=== PATIENT | female | born 1955 | race American Indian/Alaskan Native ===

== ENCOUNTER 2016-12-03 11:30 | Outpatient (CLI) | payer MEDICARE, OTHER ==
--- NOTE | 2016-12-03 12:34 | Mammography Report ---
BILATERAL MAMMOGRAM: FINDINGS: There are scattered fibroglandular densities (approximately 25%-50% glandular). No mass, distortion, suspicious calcification, or skin change is seen. No significant changes when compared to prior exams dating back to 2013. CAD was utilized. IMPRESSION: Negative mammogram. There is no mammographic evidence of malignancy. RECOMMENDATION: Follow-up per ACS guidelines. BI-RADS CATEGORY: 1 = Negative ACR BI-RADS MAMMOGRAPHIC CODES: 0 = Needs additional imaging evaluation; 1 = Negative; 2 = Benign; 3 = Probably benign; 4 = Suspicious; 5 = Malignant; 6 = Known biopsy-proven malignancy COMMENT: 1. Dense breast tissue, i.e., adenosis, fibrocystic changes, etc., may obscure an underlying neoplasm. 2. Approximately 10% of cancers are not detected with mammography. 3. A negative mammography report should not delay biopsy if a clinically suspicious mass is present. COMMENT: Patient follow-up letters are generated in [employer].
== END 2016-12-03 11:31 | disposition home or self-care (01) ==
LOC: MAMMO 11:30
PROVIDERS: ATTEND Obstetrics & Gynecology Gynecology
DX: Z12.31 Encounter for screening mammogram for malignant neoplasm of breast (principal)
CPT/HCPCS: 77067; G0202

== ENCOUNTER 2018-03-27 10:31 | Outpatient (CLI) | payer MEDICARE, OTHER ==
--- NOTE | 2018-03-28 11:30 | Mammography Report ---
BILATERAL DIGITAL SCREENING MAMMOGRAM with CAD : 03/27/18 10:31:00 CLINICAL: Routine screening. COMPARISON:12/03/16 FINDINGS: The breasts are heterogeneously dense, which may obscure small masses. No mass, architectural distortion or suspicious calcifications. IMPRESSION: No mammographic evidence of malignancy. BI-RADS CATEGORY: 2 -- Benign RECOMMENDATION: Routine mammographic screening in one year. COMMENT: Patient follow-up letters are generated by our [employer] application.
== END 2018-03-27 10:32 | disposition home or self-care (01) ==
LOC: MAMMO 10:31
PROVIDERS: ATTEND Family Medicine
DX: Z12.31 Encounter for screening mammogram for malignant neoplasm of breast (principal)
CPT/HCPCS: 77067

== ENCOUNTER 2018-11-15 19:21 | Inpatient (IN) | payer MEDICARE, OTHER ==
[2018-11-15 20:10] LABS: Basophils # (Auto) 0.1 K/mm3 (0.0-0.1); Basophils % (Auto) 0.9 % (0.0-1.8); Eosinophils % (Auto) 0.4 % (0.0-4.3); Hematocrit 42.5 % (30.3-42.9); Hemoglobin 14.3 gm/dl (10.1-14.3); Lymphocytes # (Auto) 1.3 K/mm3 (1.2-5.4); Lymphocytes % (Auto) 11.9 % (13.4-35.0); Mean Corpuscular HGB Conc 34 % (30-34); Mean Corpuscular Volume 88 fl (79-97); Monocytes # (Auto) 0.7 K/mm3 (0.0-0.8); Monocytes % (Auto) 6.6 % (0.0-7.3); Platelet Count 336 K/mm3 (140-440); Red Blood Count 4.84 M/mm3 (3.65-5.03); Red Cell Distribution Width 14.4 % (13.2-15.2)
--- NOTE | 2018-11-15 20:15 | Emergency Department Report ---
ED Shortness of Breath HPI - General Chief Complaint: Dyspnea/Respdistress Stated Complaint: DIFFICULTY IN BREATHING Time Seen by Provider: 11/15/18 19:30 Source: patient, EMS Mode of arrival: Stretcher Limitations: No Limitations - History of Present Illness Initial Comments: 63-year-old female presents to ED with cough and shortness of breath. Patient states she was diagnosed with pneumonia 2 weeks ago and more recently finished a course of doxycycline and 4 days ago. Patient reports 2 days ago she began having chest congestion and shortness of breath again. Patient has history of stage IV lung cancer. Patient states she is not currently on chemotherapy or radiation. States she is scheduled to begin a different treatment with medication that will be given through her port. Patient also reports history of PE, however states she is only on Plavix, denies Coumadin, Eliquis, Xarelto. The patient is not on home O2. Denies fever. Patient transported to ED via EMS, states patient's O2 sats were 88% on room air. MD Complaint: shortness of breath, cough -: days(s) (2) Severity: moderate Consistency: constant Improves With: nothing Worsens With: nothing Known History Of: other (pneumonia, stage IV lung cancer,? PE) - Related Data Home Medications Medication Instructions Recorded Confirmed Last Taken ALPRAZolam [Xanax TAB] 0.5 mg PO DAILY 11/15/18 11/16/18 11/15/18 Aspirin [Aspir-Low] 81 mg PO DAILY 11/15/18 11/16/18 11/15/18 Clopidogrel Bisulfate [Clopidogrel] 75 mg PO DAILY 11/15/18 11/16/18 11/15/18 Empagliflozin [Jardiance] 25 mg PO DAILY 11/15/18 11/15/18 11/14/18 Escitalopram [Lexapro] 10 mg PO DAILY 11/15/18 11/16/18 11/15/18 Losartan/Hydrochlorothiazide DAILY 11/15/18 11/15/18 [Losartan-Hctz 50-12.5 mg Tab] Sitagliptin Phosphate [Januvia] DAILY 11/15/18 11/15/18 Allergies Allergy/AdvReac Type Severity Reaction Status Date / Time hydrocodone AdvReac Anaphylaxis Verified 11/16/18 00:09 metformin AdvReac Anaphylaxis Verified 11/16/18 00:09 oxycodone [From OxyContin] AdvReac Angioedema Verified 11/16/18 00:09 ED Review of Systems ROS: Stated complaint: DIFFICULTY IN BREATHING Other details as noted in HPI Comment: All other systems reviewed and negative Constitutional: denies: chills, fever Respiratory: cough, shortness of breath Cardiovascular: chest pain ED Past Medical Hx - Past Medical History Previous Medical History?: Yes Hx Hypertension: Yes Hx CVA: Yes Hx Diabetes: Yes (DM2) Hx of Cancer: Yes (Stage 4 Lung CA) - Social History Smoking Status: Former Smoker Substance Use Type: None - Medications Home Medications: Home Medications Medication Instructions Recorded Confirmed Last Taken Type ALPRAZolam [Xanax TAB] 0.5 mg PO DAILY 11/15/18 11/16/18 11/15/18 History Aspirin [Aspir-Low] 81 mg PO DAILY 11/15/18 11/16/18 11/15/18 History Clopidogrel Bisulfate [Clopidogrel] 75 mg PO DAILY 11/15/18 11/16/18 11/15/18 History Empagliflozin [Jardiance] 25 mg PO DAILY 11/15/18 11/15/18 11/14/18 History Escitalopram [Lexapro] 10 mg PO DAILY 11/15/18 11/16/18 11/15/18 History Losartan/Hydrochlorothiazide DAILY 11/15/18 11/15/18 History [Losartan-Hctz 50-12.5 mg Tab] Sitagliptin Phosphate [Januvia] DAILY 11/15/18 11/15/18 History ED Physical Exam - General Limitations: No Limitations General appearance: alert, in no apparent distress - Head Head exam: Present: atraumatic, normocephalic - Eye Eye exam: Present: normal appearance - ENT ENT exam: Present: mucous membranes moist - Neck Neck exam: Present: normal inspection - Respiratory Respiratory exam: Present: normal lung sounds bilaterally. Absent: respiratory distress - Cardiovascular Cardiovascular Exam: Present: normal rhythm, tachycardia - GI/Abdominal GI/Abdominal exam: Present: soft. Absent: distended, tenderness - Extremities Exam Extremities exam: Present: normal inspection. Absent: pedal edema - Neurological Exam Neurological exam: Present: alert, oriented X3 - Psychiatric Psychiatric exam: Present: normal affect, normal mood - Skin Skin exam: Present: warm, dry, intact, normal color ED Course Vital Signs 04/05/2611/15/18 11/15/18 19:26 19:37 19:45 Temperature 97.7 F Pulse Rate 117 H 117 H 116 H Respiratory 18 27 H 24 Rate Blood Pressure 108/75 Blood Pressure 127/88 [Right] O2 Sat by Pulse 94 94 Oximetry 11/15/18 11/15/18 11/15/18 20:01 20:15 20:31 Temperature Pulse Rate 116 H 115 H 114 H Respiratory 27 H 27 H 20 Rate Blood Pressure 108/75 107/71 107/71 Blood Pressure [Right] O2 Sat by Pulse 91 91 92 Oximetry 11/15/18 11/15/18 11/15/18 20:45 21:01 21:15 Temperature Pulse Rate 114 H 115 H 115 H Respiratory 25 H 21 24 Rate Blood Pressure 107/71 107/71 128/80 Blood Pressure [Right] O2 Sat by Pulse 91 91 98 Oximetry 11/15/18 11/15/18 11/15/18 21:30 21:45 22:00 Temperature Pulse Rate 116 H 113 H 114 H Respiratory 12 22 11 L Rate Blood Pressure 125/83 138/84 143/86 Blood Pressure [Right] O2 Sat by Pulse 93 91 Oximetry 11/15/18 11/15/18 11/15/18 22:15 22:48 23:00 Temperature Pulse Rate 114 H 119 H 110 H Respiratory 21 26 H 27 H Rate Blood Pressure 130/84 142/86 131/87 Blood Pressure [Right] O2 Sat by Pulse 92 93 94 Oximetry 11/15/18 23:15 Temperature Pulse Rate 113 H Respiratory 22 Rate Blood Pressure 127/88 Blood Pressure [Right] O2 Sat by Pulse 93 Oximetry ED Medical Decision Making - Lab Data Result diagrams: 11/15/18 19:50 11/15/18 19:50 - EKG Data -: EKG Interpreted by Sc EKG shows normal: sinus rhythm, axis, intervals, QRS complexes, ST-T waves Rate: tachycardia (rate 117) - EKG Data Interpretation: nonspecific ST-T wave velasquez, other (low voltage) - Radiology Data Radiology results: report reviewed, image reviewed - Medical Decision Making 63-year-old female with history of stage IV lung cancer presents to ED with shortness of breath, hypoxia with room air sats 88%. Patient recently checked for pneumonia with 10 day course of doxycycline. Chest x-ray and CTA chest show possible pneumonia. No evidence of PE. Patient also has moderate to large pericardial effusion, which patient and has are already aware of, both state this is not new. Vital signs have been stable, patient is slightly hard tachycardic into the 110s, however blood pressure has been normal. Initial lactic acid consulted at 2.5. IV fluids administered, blood cultures drawn, Levaquin given. Repeat lactic acid is now within normal limits. Remainder of labs unremarkable, except for mild hypokalemia at 3.3, which has been replaced. Spoke with hospitalist, Dr Hui, for admission. Bridge orders placed. - Differential Diagnosis pneumonia, PE, progression of lung disease Critical care attestation.: If time is entered above; I have spent that time in minutes in the direct care of this critically ill patient, excluding procedure time. ED Disposition Clinical Impression: Pneumonia, Pericardial effusion without cardiac tamponade, Hypoxia, Hypokalemia Disposition: OP ADMIT IP TO THIS HOSP Is pt being admited?: Yes Condition: Stable Time of Disposition: 23:29
[2018-11-15 20:33] LABS: Alanine Aminotransferase 31 units/L (7-56); Albumin 4.1 g/dL (3.9-5); BUN/Creatinine Ratio 13; Blood Urea Nitrogen 9 mg/dL (7-17); Calcium 9.5 mg/dL (8.4-10.2); Hemolysis Index 3
--- NOTE | 2018-11-15 20:46 | XRay Report ---
PROCEDURE: XR CHEST 1V AP TECHNIQUE: Chest radiograph single view. HISTORY: cough COMPARISONS: None . FINDINGS: Moderate to severe degree cardiomegaly is noted. There is diffuse prominence of interstitial markings . Mild to moderate degree left pleural effusion is noted which appears to be loculated. A 1.7 cm ill- defined nodular density is noted in the left upper lung. A patchy densities noted in the right upper lobe. A left-sided chest port is noted with its catheter terminating at the level of the right atrium . IMPRESSION: Cardiomegaly with possible underlying pericardial effusion Left pleural effusion which appears loculated 1.7 cm nodule left upper lobe suspicious for neoplasm. Patchy density right upper lobe suspicious for pneumonia. This document is electronically signed by Keo Cole MD., November 15 2018 08:44:05 PM ET
[2018-11-15] MEDS ORDERED: LEVAQUIN 750MG/150ML 750 MG/150 ML BAG IV ONE (20:50)
[2018-11-15] MEDS ORDERED: NACL 0.9% 1000 ML IV ONE (20:53)
--- NOTE | 2018-11-15 23:09 | Cat Scan Report ---
PROCEDURE: CT ANGIO CHEST TECHNIQUE: Computerized tomographic angiography of the chest was performed after the IV injection of iodinated nonionic contrast including image processing. The image data was postprocessed using 2-di mensional multiplanar reformatted (MPR) and 3-dimensional (MIP and/or volume rendered) techniques. Au tomated exposure control, adjustment of mA and/or kV according to patient size, or iterative reconstr uction dose optimization techniques were utilized. CT DOSE LENGTH PRODUCT: 791.1 mGycm HISTORY: sob COMPARISONS: None . FINDINGS: Heart and pericardium: Heart is enlarged. Moderate to large pericardial effusion noted. Coronary calc ifications noted. Thoracic aorta: Normal. Pulmonary vasculature: No evidence for acute pulmonary embolus. Lymph nodes: No enlarged thoracic lymph nodes. Lungs: Moderate to severe emphysematous changes noted. A 3.9 x 3.4 cm spiculated nodular mass seen in the right upper lobe with associated additional 1.6 x 1.1 cm adjacent masslike opacity, these findin gs are worrisome for primary neoplasm. Multiple additional scattered nodular opacities seen throughou t the visualized lung [place] measuring up to 2.0 x 1.7 cm in the left upper lobe worrisome for metast atic disease. Airspace opacities seen in the left upper lobe and lingula may represent additional are as of edema versus pneumonia. Pleural space: No effusion, thickening, or pneumothorax. Musculoskeletal structures: No significant abnormality. Upper abdominal structures: No significant abnormality. IMPRESSION: No evidence for acute pulmonary embolus. Moderate to severe emphysematous changes noted. A 3.9 x 3.4 cm spiculated nodular mass seen in the ri ght upper lobe with associated additional 1.6 x 1.1 cm adjacent masslike opacity, these findings are worrisome for primary neoplasm. Multiple additional scattered nodular opacities seen throughout the v isualized lung [place] measuring up to 2.0 x 1.7 cm in the left upper lobe worrisome for metastatic di sease. Airspace opacities seen in the left upper lobe and lingula may represent additional areas of e delgado versus pneumonia. Moderate to large pericardial effusion noted. This document is electronically signed by Linnette Pelayo MD., November 15 2018 11:07:22 PM ET
[2018-11-16 00:17] LABS: Bilirubin,Urine NEG (Negative); Blood,Urine NEG (Negative); Color,Urine Yellow (Yellow); Mucus,Urine FEW /HPF; Protein,Urine <15 mg/dL mg/dL (Negative); Urobilinogen,Urine < 2.0 mg/dL (<2.0)
[2018-11-16] MEDS ORDERED: XANAX ONE (00:58)
[2018-11-16] MEDS ORDERED: TYLENOL PO PRN (01:02)
[2018-11-16] MEDS ORDERED: ZOFRAN IV PRN (01:04)
[2018-11-16] MEDS ORDERED: D50W (25GM) Syringe IV PRN (01:06)
[2018-11-16] MEDS ORDERED: VANCOMYCIN PHARMACY TO DOSE IV SCH (05:00)
[2018-11-16] MEDS ORDERED: VANCOMYCIN 2,000 MG in NACL 0.9% 500 ML 500 ML IV ONE (05:15)
[2018-11-16] MEDS: NACL 0.9% 1000 ML 1,000 ML IV SCH ×2 (05:18→17:16)
[2018-11-16] MEDS: ZOSYN/NS 3.375GM/50ML 3.375 GM/50 ML BAG IV SCH ×3 (05:47→22:06)
[2018-11-16] MEDS ORDERED: ZOSYN/NS 3.375GM/50ML 3.375 GM/50 ML BAG IV SCH (06:00)
--- NOTE | 2018-11-16 06:07 | History and Physical Report ---
CHIEF COMPLAINT: Shortness of breath. Other complaint includes congestion. HISTORY OF PRESENT ILLNESS: The patient is a 63-year-old female with past history of lung cancer who is on chemotherapy and who was recently diagnosed with pneumonia about 2 weeks ago and placed on doxycycline, which she finished about 4 days ago, but continued to have congestion and shortness of breath. There is no history of fever, no history of chills. The patient also has no history of chest pain and presented for evaluation. The patient admitted to having cough. PAST MEDICAL HISTORY: Pertinent for hypertension, cerebrovascular accident, diabetes mellitus, stage 4 lung cancer. PAST SURGICAL HISTORY: Unremarkable. FAMILY HISTORY: Noncontributory. SOCIAL HISTORY: The patient is a former cigarette smoker but does not smoke currently, does not drink alcohol and does not use illicit drugs. MEDICATIONS: The patient is on Xanax 0.5 mg by mouth daily, aspirin 81 mg by mouth daily, clopidogrel 75 mg by mouth daily, Xanax 25 mg by mouth daily, Lexapro 10 mg by mouth daily, losartan HCTZ 50/12.5 one by mouth daily, Januvia dose and frequency unknown. ALLERGIES: The patient is allergic to HYDROCODONE, METFORMIN, and OXYCODONE. REVIEW OF SYSTEMS: CONSTITUTIONAL: There is no fever, no chills, no diaphoresis. HEENT: There is no headache or sore throat. CARDIOVASCULAR SYSTEM: There is no chest pain or orthopnea. RESPIRATORY SYSTEM: Shortness of breath present, congestion present, cough present. GASTROINTESTINAL SYSTEM: There is no nausea, no vomiting, no abdominal pain, diarrhea or constipation. NEUROLOGICAL SYSTEM: There is no numbness, no dizziness, no altered mental status. MUSCULOSKELETAL: There is no joint pain or swelling. DERMATOLOGICAL SYSTEM: There is no skin rash or itching. GENITOURINARY SYSTEM: There is no dysuria, hematuria, or flank pain. Rest of system review is normal. PHYSICAL EXAMINATION: GENERAL: At the time of exam, the patient was found to be alert, oriented x 3 and not in acute distress. VITAL SIGNS: At the initial time of presentation showed temperature of 97.7 degrees Fahrenheit, pulse of 117, respirations 18, blood pressure 127/88, O2 sat of 94% on room air. HEENT: Shows pupils to be equal, round, reactive to light and accommodating. Extraocular muscles are intact. NECK: Supple with no JVD or carotid bruit. CARDIOVASCULAR: Shows normal first and second heart sounds with no gallops or murmurs. RESPIRATORY SYSTEM: Shows reduced air entry on the right lung field area with scattered crackles. GASTROINTESTINAL SYSTEM: Shows abdomen to be full, soft, and nontender with no organomegaly or rigidity. NEUROLOGIC: Shows no focal deficit. MUSCULOSKELETAL SYSTEM: Shows no joint swelling or tenderness. DERMATOLOGICAL SYSTEM: Shows no skin rash. GENITOURINARY SYSTEM: Showing no costovertebral tenderness. PERTINENT LABORATORY DATA AND IMAGING STUDIES: The patient had chest x-ray done that shows cardiomegaly with possible underlying pericardia effusion, left pleural effusion, which appears loculated and then 1.7 nodule in the left upper lobe suspicious for neoplasm, patchy density in the right upper lobe suspicious for pneumonia. Also, the patient had CT angiogram of the chest done and CT angiogram of the chest shows no evidence of pulmonary embolism, but there is finding of moderate to severe emphysematous changes noted with a 3.9 x 3.4 cm spiculated nodular mass seen in the right upper lobe with associated additional 1.6 x 1.1 cm adjacent mass like opacity and the radiologist said that these findings are worrisome for primary neoplasm. Multiple additional scattered nodular opacity seen throughout the visualized lung field measuring up to 2 x 1.7 cm in the left upper lobe worrisome for metastatic disease. Also, there is airspace opacity seen in the left upper lobe. The radiologist said that this could be edema versus pneumonia. There is moderate to large pericardial effusion noted. LABORATORY RESULTS: The patient's CBC shows slight increase in WBC of 11.4 with normal hemoglobin, normal hematocrit and normal MCV with CBC differential showing elevated segmented neutrophil of 80.2%. The patient's D-dimer level was high with a value of 914.3. The patient's chemistry showed low potassium level of 3.3 with elevated lactic acid level of 2.5. Urinalysis showed high specific gravity of 1.046 with trace urine leukocyte esterase, normal urine WBC and negative urine nitrite. DIAGNOSES: 1. Right lung pneumonia. 2. Hypoxia. 3. Sepsis. 4. Hypokalemia. PLAN OF CARE: 1. The patient will be admitted to telemetry. 2. The patient will be on IV Zosyn 3.375 grams q.8 hours. 3. The patient will be on IV normal saline at 125 mL an hour. 4. The patient will be on Tylenol 650 mg by mouth every 4 hours for fever and headache and IV Zofran 4 mg every 8 hours as needed for nausea and vomiting. 5. The patient will be on IV vancomycin with pharmacy to dose. 6. The patient will be on home medication as shown in the medication reconciliation section. 7. The patient will be on Accu-Chek a.c. and at bedtime, followed by low-dose sliding scale using regular insulin coverage. 8. The patient will be on sequential compressive device for DVT prophylaxis. 9. The patient will be on home medications as shown in the medication reconciliation section. JOB# [id number] OCN/NTS
[2018-11-16 07:47] LABS: BUN/Creatinine Ratio 13; Blood Urea Nitrogen 8 mg/dL (7-17); Calcium 8.9 mg/dL (8.4-10.2); Hemolysis Index 5
[2018-11-16] MEDS: LEXAPRO PO SCH (09:13)
[2018-11-16] MEDS: PLAVIX PO SCH (09:13)
[2018-11-16] MEDS: K-DUR PO SCH (09:14)
[2018-11-16] MEDS: HumuLIN R SUB-Q SCH ×4 (09:14→22:07)
[2018-11-16] MEDS: XANAX PO SCH ×2 (09:14→22:07)
[2018-11-16] MEDS: HALFPRIN EC PO SCH (09:14)
--- NOTE | 2018-11-16 09:37 | Progress Note ---
Assessment and Plan Assessment and plan: --Lung cancer; status post chemotherapy Follows with pulmonology and oncologist, [facility] scheduled to start Keytruda today , consult oncology Patient follows with oncologist --Possible right lung pneumonia; community-acquired empiric antibiotics, Follow cultures --Sepsis/lactic acidosis; secondary to pneumonia IV fluids antibiotics and supportive care --Hypokalemia; replaced --Moderate pericardial effusion; probably malignant effusion Echocardiogram, cardiology consult if needed --Elevated D dimers; negative PE, lung mass noted Check lower extremity venous Doppler to rule out DVT --Type 2 diabetes mellitus; Accu-Chek sliding scale coverage and ADA diet Oral hypoglycemics /long acting insulin as needed, check A1c --Obesity; BMI 35.7 Weight reduction and medically stable --DVT prophylaxis; Lovenox --Full CODE STATUS Plan of care is reviewed with the patient and her at the bedside I also discussed with the patient's nurse History Interval history: Patient seen and examined medical records reviewed Patient was admitted this morning with worsening shortness of breath and pneumonia Lactic acidosis and history of stage IV lung cancer on chemotherapy Patient looks chronically ill, not in acute distress Complaints of shortness of breath and generalized weakness Vital signs are reviewed Hospitalist Physical - Constitutional Vitals: Temp Pulse Resp BP Pulse Ox 98.2 F 112 H 20 135/86 94 11/16/18 03:10 11/16/18 03:10 11/16/18 03:10 11/16/18 03:10 11/16/18 03:10 General appearance: Present: no acute distress, well-nourished, obese - EENT Eyes: Present: PERRL, EOM intact - Neck Neck: Present: supple, normal ROM - Respiratory Respiratory effort: normal Respiratory: bilateral: diminished, rhonchi, negative: rales, wheezing - Cardiovascular Rhythm: regular Heart Sounds: Present: S1 & S2 - Extremities Extremities: no ischemia, No edema - Abdominal General gastrointestinal: soft, non-tender, non-distended, normal bowel sounds - Integumentary Integumentary: Present: clear, warm - Psychiatric Psychiatric: appropriate mood/affect, cooperative - Neurologic Neurologic: moves all extremities Results - Labs CBC & Chem 7: 11/17/18 06:56 11/17/18 06:56 Labs: Laboratory Last Values WBC 11.4 K/mm3 (4.5-11.0) H 11/15/18 19:50 RBC 4.84 M/mm3 (3.65-5.03) 11/15/18 19:50 Hgb 14.3 gm/dl (10.1-14.3) 11/15/18 19:50 Hct 42.5 % (30.3-42.9) 11/15/18 19:50 MCV 88 fl (79-97) 11/15/18 19:50 MCH 30 pg (28-32) 11/15/18 19:50 MCHC 34 % (30-34) 11/15/18 19:50 RDW 14.4 % (13.2-15.2) 11/15/18 19:50 Plt Count 336 K/mm3 (140-440) 11/15/18 19:50 Lymph % (Auto) 11.9 % (13.4-35.0) L 11/15/18 19:50 Cass % (Auto) 6.6 % (0.0-7.3) 11/15/18 19:50 Eos % (Auto) 0.4 % (0.0-4.3) 11/15/18 19:50 Baso % (Auto) 0.9 % (0.0-1.8) 11/15/18 19:50 Lymph # 1.3 K/mm3 (1.2-5.4) 11/15/18 19:50 Cass # 0.7 K/mm3 (0.0-0.8) 11/15/18 19:50 Eos # 0.0 K/mm3 (0.0-0.4) 11/15/18 19:50 Baso # 0.1 K/mm3 (0.0-0.1) 11/15/18 19:50 Seg Neutrophils % 80.2 % (40.0-70.0) H 11/15/18 19:50 Seg Neutrophils # 9.1 K/mm3 (1.8-7.7) H 11/15/18 19:50 D-Dimer 914.62 ng/mlDDU (0-234) H 11/15/18 19:50 Sodium 140 mmol/L (137-145) 11/16/18 05:34 Potassium 3.4 mmol/L (3.6-5.0) L 11/16/18 05:34 Chloride 104.6 mmol/L (98-107) 11/16/18 05:34 Carbon Dioxide 21 mmol/L (22-30) L 11/16/18 05:34 Anion Gap 18 mmol/L 11/16/18 05:34 BUN 8 mg/dL (7-17) 11/16/18 05:34 Creatinine 0.6 mg/dL (0.7-1.2) L 11/16/18 05:34 Estimated GFR > 60 ml/min 11/16/18 05:34 BUN/Creatinine Ratio 13 % 11/16/18 05:34 Glucose 119 mg/dL (65-100) H 11/16/18 05:34 POC Glucose 118 (70-105) H 11/16/18 07:47 Lactic Acid 2.40 mmol/L (0.7-2.0) H* 11/16/18 04:06 Calcium 8.9 mg/dL (8.4-10.2) 11/16/18 05:34 Total Bilirubin 0.40 mg/dL (0.1-1.2) 11/15/18 19:50 AST 36 units/L (5-40) 11/15/18 19:50 ALT 31 units/L (7-56) 11/15/18 19:50 Alkaline Phosphatase 107 units/L (35-129) 11/15/18 19:50 Troponin T < 0.010 ng/mL (0.00-0.029) 11/15/18 21:58 NT-Pro-B Natriuret Pep 512.9 pg/mL (0-900) 11/15/18 19:50 Total Protein 7.2 g/dL (6.3-8.2) 11/15/18 19:50 Albumin 4.1 g/dL (3.9-5) 11/15/18 19:50 Albumin/Globulin Ratio 1.3 % 11/15/18 19:50 Urine Color Yellow (Yellow) 11/15/18 23:37 Urine Turbidity Clear (Clear) 11/15/18 23:37 Urine pH 6.0 (5.0-7.0) 11/15/18 23:37 Ur Specific [place] 1.046 (1.003-1.030) H 11/15/18 23:37 Urine Protein <15 mg/dl mg/dL (Negative) 11/15/18 23:37 Urine Glucose (UA) >=500 mg/dL (Negative) 11/15/18 23:37 Urine Ketones 20 mg/dL (Negative) 11/15/18 23:37 Urine Blood Neg (Negative) 11/15/18 23:37 Urine Nitrite Neg (Negative) 11/15/18 23:37 Urine Bilirubin Neg (Negative) 11/15/18 23:37 Urine Urobilinogen < 2.0 mg/dL (<2.0) 11/15/18 23:37 Ur Leukocyte Esterase Tr (Negative) 11/15/18 23:37 Urine WBC (Auto) 2.0 /HPF (0.0-6.0) 11/15/18 23:37 Urine RBC (Auto) 2.0 /HPF (0.0-6.0) 11/15/18 23:37 U Epithel Cells (Auto) 2.0 /HPF (0-13.0) 11/15/18 23:37 Urine Mucus Few /HPF 11/15/18 23:37 Active Medications - Current Medications Current Medications: Generic Name Dose Route Start Last Admin Trade Name Freq PRN Reason Stop Dose Admin Acetaminophen 650 mg 11/16/18 01:02 Tylenol PO Q4H PRN Fever >101 Alprazolam 0.5 mg 11/16/18 22:00 Xanax PO QHS PETE Alprazolam 0.5 mg 11/16/18 10:00 11/16/18 09:14 Xanax PO 0.5 mg DAILY PETE Administration Aspirin 81 mg 11/16/18 10:00 11/16/18 09:14 Halfprin Ec PO 81 mg DAILY PETE Administration Clopidogrel Bisulfate 75 mg 11/16/18 10:00 11/16/18 09:13 Plavix PO 75 mg DAILY PETE Administration Dextrose 50 ml 11/16/18 01:06 D50w (25gm) Syringe IV PRN PRN Hypoglycemia Escitalopram Oxalate 10 mg 11/16/18 10:00 11/16/18 09:13 Lexapro PO 10 mg DAILY PETE Administration Sodium Chloride 1,000 mls @ 125 mls/hr 11/16/18 02:00 11/16/18 05:18 Nacl 0.9% 1000 Ml IV 125 mls/hr DIRECT PETE Administration Piperacillin Sod/Tazobactam Sod 3.375 gm in 50 mls @ 100 mls/hr 11/16/18 06:00 11/16/18 05:47 Zosyn/Ns 3.375gm/50ml IV 100 mls/hr Q8HR PETE Administration Vancomycin HCl 1,500 mg/ 530 mls @ 333.333 mls/hr 11/16/18 18:00 Sodium Chloride IV Q12H PETE Insulin Human Regular 0 units 11/16/18 07:30 11/16/18 09:14 Humulin R SUB-Q Not Given [facility] Protocol Insulin Human Regular 0 units 11/16/18 22:00 Humulin R SUB-Q QHS [facility] Protocol Ondansetron HCl 4 mg 11/16/18 01:04 Zofran IV Q8H PRN Nausea And Vomiting Potassium Chloride 40 meq 11/16/18 10:00 11/16/18 09:14 K-Dur PO 40 meq QDAY PETE Administration
[2018-11-16] MEDS ORDERED: HEPARIN SUB-Q SCH (10:00)
[2018-11-16] MEDS: TESSALON PERLES PO SCH ×3 (12:12→22:07)
[2018-11-16] MEDS: VANCOMYCIN 1,500 MG in NACL 0.9% 500 ML 500 ML IV SCH (17:16)
--- NOTE | 2018-11-16 23:24 | Event Note ---
Date: 11/16/18 [id number]
[2018-11-17] MEDS: ZOSYN/NS 3.375GM/50ML 3.375 GM/50 ML BAG IV SCH ×3 (05:40→22:08)
[2018-11-17] MEDS: TESSALON PERLES PO SCH ×2 (05:40→22:08)
[2018-11-17] MEDS: VANCOMYCIN 1,500 MG in NACL 0.9% 500 ML 500 ML IV SCH ×2 (05:41→17:53)
[2018-11-17] MEDS: HumuLIN R SUB-Q SCH ×2 (07:08→11:39)
[2018-11-17 07:44] LABS: Basophils % (Auto) 0.4 % (0.0-1.8); Eosinophils % (Auto) 0.3 % (0.0-4.3); Hematocrit 37.9 % (30.3-42.9); Hemoglobin 12.4 gm/dl (10.1-14.3); Lymphocytes # (Auto) 1.2 K/mm3 (1.2-5.4); Lymphocytes % (Auto) 12.2 % (13.4-35.0); Mean Corpuscular HGB Conc 33 % (30-34); Mean Corpuscular Volume 89 fl (79-97); Monocytes # (Auto) 0.9 K/mm3 (0.0-0.8); Monocytes % (Auto) 9.2 % (0.0-7.3); Platelet Count 297 K/mm3 (140-440); Red Blood Count 4.26 M/mm3 (3.65-5.03); Red Cell Distribution Width 14.3 % (13.2-15.2)
[2018-11-17 07:57] LABS: Alanine Aminotransferase 30 units/L (7-56); Albumin 3.7 g/dL (3.9-5); BUN/Creatinine Ratio 13; Blood Urea Nitrogen 8 mg/dL (7-17); Calcium 8.9 mg/dL (8.4-10.2); Hemolysis Index 19
[2018-11-17] MEDS ORDERED: SOLU-Medrol IV SCH (11:00)
[2018-11-17] MEDS ORDERED: SUBLIMAZE ONE (11:29)
[2018-11-17] MEDS ORDERED: VERSED ONE (11:29)
[2018-11-17] MEDS ORDERED: NACL 0.9% 500 ML IR ONE (11:30)
[2018-11-17] MEDS ORDERED: XYLOCAINE 2% INFILTRATI ONE ×2 (11:30→11:52)
[2018-11-17] MEDS ORDERED: NACL 0.9% 500 ML 500 ML ONE (11:30)
[2018-11-17] MEDS ORDERED: NACL 0.9% 500 ML 500 ML IV SCH (12:00)
--- NOTE | 2018-11-17 12:48 | Consultation ---
History of Present Illness Consult date: 11/17/18 Consult reason: shortness of breath History of present illness: 63 year old female admitted with shortness of breath and hypoxemia. She has a history of metastatic lung cancer and has not yet started chemo or radiation therapy. CT scan showed large pericardial effusion and echo was relevant for tamponade physiology. Past History Past Medical History: CAD, cancer, diabetes, hypertension, stroke, other (pericardial effusion) Past Surgical History: Other ([place]) Social history: smoking (Former smoker, quit in 2005) Family history: no significant family history Medications and Allergies Allergies Allergy/AdvReac Type Severity Reaction Status Date / Time hydrocodone AdvReac Anaphylaxis Verified 11/16/18 00:09 metformin AdvReac Anaphylaxis Verified 11/16/18 00:09 oxycodone [From OxyContin] AdvReac Angioedema Verified 11/16/18 00:09 Home Medications Medication Instructions Recorded Confirmed Last Taken Type ALPRAZolam [Xanax TAB] 0.5 mg PO DAILY 11/15/18 11/16/18 11/15/18 History Aspirin [Aspir-Low] 81 mg PO DAILY 11/15/18 11/16/18 11/15/18 History Clopidogrel Bisulfate [Clopidogrel] 75 mg PO DAILY 11/15/18 11/16/18 11/15/18 History Empagliflozin [Jardiance] 25 mg PO DAILY 11/15/18 11/15/18 11/14/18 History Escitalopram [Lexapro] 10 mg PO DAILY 11/15/18 11/16/18 11/15/18 History Losartan/Hydrochlorothiazide 1 tab PO DAILY 11/15/18 11/16/18 11/15/18 History [Losartan-Hctz 50-12.5 mg Tab] Sitagliptin Phosphate [Januvia] 1 tab PO DAILY 11/15/18 11/16/18 11/15/18 History Active Meds: Active Medications Acetaminophen (Tylenol) 650 mg PO Q4H PRN PRN Reason: Fever >101 Alprazolam (Xanax) 0.5 mg PO QHS [facility] Last Admin: 11/16/18 22:07 Dose: 0.5 mg Documented by: Alprazolam (Xanax) 0.5 mg PO DAILY [facility] Last Admin: 11/16/18 09:14 Dose: 0.5 mg Documented by: Aspirin (Halfprin Ec) 81 mg PO DAILY [facility] Last Admin: 11/16/18 09:14 Dose: 81 mg Documented by: Benzonatate (Tessalon Perles) 100 mg PO Q8HR [facility] Last Admin: 11/17/18 05:40 Dose: 100 mg Documented by: Clopidogrel Bisulfate (Plavix) 75 mg PO DAILY [facility] Last Admin: 11/16/18 09:13 Dose: 75 mg Documented by: Dextrose (D50w (25gm) Syringe) 50 ml IV PRN PRN PRN Reason: Hypoglycemia Escitalopram Oxalate (Lexapro) 10 mg PO DAILY [facility] Last Admin: 11/16/18 09:13 Dose: 10 mg Documented by: Sodium Chloride (Nacl 0.9% 1000 Ml) 1,000 mls @ 125 mls/hr IV DIRECT [facility] Last Admin: 11/16/18 17:16 Dose: 125 mls/hr Documented by: Piperacillin Sod/Tazobactam Sod (Zosyn/Ns 3.375gm/50ml) 3.375 gm in 50 mls @ 100 mls/hr IV Q8HR [facility] Last Admin: 11/17/18 05:40 Dose: 100 mls/hr Documented by: Vancomycin HCl 1,500 mg/ (Sodium Chloride) 530 mls @ 333.333 mls/hr IV Q12H [facility] Last Admin: 11/17/18 05:41 Dose: 333.333 mls/hr Documented by: Sodium Chloride (Nacl 0.9% 500 Ml) 500 mls @ 50 mls/hr IV DIRECT [facility]E Stop: 11/17/18 21:59 Insulin Human Regular (Humulin R) 0 units SUB-Q AC [facility]; Protocol Last Admin: 11/16/18 17:16 Dose: Not Given Documented by: Insulin Human Regular (Humulin R) 0 units SUB-Q QHS [facility]; Protocol Last Admin: 11/16/18 22:07 Dose: Not Given Documented by: Methylprednisolone Sodium Succinate (Solu-Medrol) 60 mg IV Q8HR [facility] Ondansetron HCl (Zofran) 4 mg IV Q8H PRN PRN Reason: Nausea And Vomiting Potassium Chloride (K-Dur) 40 meq PO QDAY [facility] Last Admin: 11/16/18 09:14 Dose: 40 meq Documented by: Review of Systems All systems: negative Physical Examination Vital Signs Temp Pulse Resp BP Pulse Ox 97.7 F 117 H 18 127/88 94 11/15/18 19:26 11/15/18 19:26 11/15/18 19:26 11/15/18 19:26 11/15/18 19:26 General appearance: severe distress Cardiac: Positive: Tachycardia Lungs: Positive: Decreased Breath Sounds Abdomen: Positive: Soft Extremities: Absent: edema Results 11/17/18 06:56 11/17/18 06:56 Cardiac Enzymes 11/17/18 Range/Units 06:56 AST 35 (5-40) units/L CBC 11/17/18 Range/Units 06:56 WBC 9.5 (4.5-11.0) K/mm3 RBC 4.26 (3.65-5.03) M/mm3 Hgb 12.4 (10.1-14.3) gm/dl Hct 37.9 (30.3-42.9) % Plt Count 297 (140-440) K/mm3 Lymph # 1.2 (1.2-5.4) K/mm3 [place] # 0.9 H (0.0-0.8) K/mm3 Eos # 0.0 (0.0-0.4) K/mm3 Baso # 0.0 (0.0-0.1) K/mm3 Comprehensive Metabolic Panel 11/17/18 Range/Units 06:56 Sodium 139 (137-145) mmol/L Potassium 3.7 (3.6-5.0) mmol/L Chloride 105.1 (98-107) mmol/L Carbon Dioxide 21 L (22-30) mmol/L BUN 8 (7-17) mg/dL Creatinine 0.6 L (0.7-1.2) mg/dL Glucose 127 H (65-100) mg/dL Calcium 8.9 (8.4-10.2) mg/dL AST 35 (5-40) units/L ALT 30 (7-56) units/L Alkaline Phosphatase 92 (35-129) units/L Total Protein 6.6 (6.3-8.2) g/dL Albumin 3.7 L (3.9-5) g/dL EKG interpretations - Telemetry EKG Rhythm: Sinus Tachycardia Assessment and Plan Pericardial effusion and tamponade - hemodynamically unstable s/p emergency pericardiocentesis with 1150 ml of serous fluid drainage (complete resolution of effusion at the end of procedure) Metastatic lung cancer Type II DM History of CVA on aspirin and plavix Recommendations: Repeat limited echo in am to evaluate for any recurrence of pericardial fluid. If any then patient will need transfer to pericardial window Oncology consult is warranted in order to expedite initiation of therapy for her lung cancer
[2018-11-17] MEDS ORDERED: MORPHINE IV ONE (13:12)
[2018-11-17] MEDS: HALFPRIN EC PO SCH (13:30)
[2018-11-17] MEDS: K-DUR PO SCH (13:30)
[2018-11-17] MEDS: PLAVIX PO SCH (13:30)
[2018-11-17] MEDS: LEXAPRO PO SCH (13:30)
--- NOTE | 2018-11-17 13:41 | Hem/Onc Progress Note ---
Assessment and Plan lung ca sq cell s/p 6 cycles of carbo - taxol - last aug 2018 due to disease progression - the plan was to change to keytruda pt was SOB I d/w dr folres office - pt did not get keytruda SOB sec to pericardial effusion fluid was drained today - feeling better d/w 1. Squamous cell non-small cell lung cancer diagnosed 2018 status post 6 doses of carboplatin and Taxol. I was under the impression that keytruda was started and I gave trial of Steroid - this was stopped. 2. Mention of emphysema. 3. Mention of pericardial effusion. 4. History of hypertension. 5. History of cerebrovascular accident. 6. History of diabetes. 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 I will follow the patient during inpatient stay. - Patient Problems (1) Lung cancer Current Visit: Yes Status: Acute Subjective Date of service: 11/17/18 Principal diagnosis: Lung ca - pericardial effusion Interval history: s/p pericardial fluid drainage Objective - Constitutional Vitals: Last Vital Signs Temp 97.3 F L 11/17/18 13:03 Pulse 107 H 11/17/18 13:02 Resp 20 11/17/18 13:02 BP 123/72 11/17/18 13:02 Pulse Ox 94 11/17/18 13:02 Pain Intensity (0-10): denies any pain General appearance: no acute distress Performance status: 3-limited selfcare - EENT Eyes: EOM intact ENT: clear oral mucosa Lymph node exam: negative cervical - Neck Neck: normal ROM - Respiratory Respiratory effort: Positive: other (better) Respiratory: bilateral: diminished - Cardiovascular Heart Sounds: Present: S1 & S2 Extremity abnormal: edema - Gastrointestinal General gastrointestinal: Present: soft Rectal Exam: deferred - Genitourinary Female genitourinary: Present: deferred - Integumentary Integumentary: warm - Musculoskeletal Musculoskeletal: generalized weakness - Labs Lab Results: Laboratory Results - last 24 hr 11/16/18 11/16/18 11/17/18 17:25 20:48 06:56 WBC 9.5 RBC 4.26 Hgb 12.4 Hct 37.9 MCV 89 MCH 29 MCHC 33 RDW 14.3 Plt Count 297 Lymph % (Auto) 12.2 L [place] % (Auto) 9.2 H Eos % (Auto) 0.3 Baso % (Auto) 0.4 Lymph # 1.2 [place] # 0.9 H Eos # 0.0 Baso # 0.0 Seg Neutrophils % 77.9 H Seg Neutrophils # 7.4 Sodium Potassium Chloride Carbon Dioxide Anion Gap BUN Creatinine Estimated GFR BUN/Creatinine Ratio Glucose POC Glucose 110 H 146 H Calcium Magnesium Total Bilirubin AST ALT Alkaline Phosphatase Total Protein Albumin Albumin/Globulin Ratio 11/17/18 11/17/18 06:56 08:12 WBC RBC Hgb Hct MCV MCH MCHC RDW Plt Count Lymph % (Auto) [place] % (Auto) Eos % (Auto) Baso % (Auto) Lymph # [place] # Eos # Baso # Seg Neutrophils % Seg Neutrophils # Sodium 139 Potassium 3.7 Chloride 105.1 Carbon Dioxide 21 L Anion Gap 17 BUN 8 Creatinine 0.6 L Estimated GFR > 60 BUN/Creatinine Ratio 13 Glucose 127 H POC Glucose 120 H Calcium 8.9 Magnesium 1.90 Total Bilirubin 0.60 AST 35 ALT 30 Alkaline Phosphatase 92 Total Protein 6.6 Albumin 3.7 L Albumin/Globulin Ratio 1.3 Medications & Allergies - Medications Allergies/Adverse Reactions: Allergies hydrocodone Adverse Reaction (Verified 11/16/18 00:09) Anaphylaxis metformin Adverse Reaction (Verified 11/16/18 00:09) Anaphylaxis oxycodone [From OxyContin] Adverse Reaction (Verified 11/16/18 00:09) Angioedema Home Medications: Home Medications Medication Instructions Recorded Confirmed Last Taken Type ALPRAZolam [Xanax TAB] 0.5 mg PO DAILY 11/15/18 11/16/18 11/15/18 History Aspirin [Aspir-Low] 81 mg PO DAILY 11/15/18 11/16/18 11/15/18 History Clopidogrel Bisulfate [Clopidogrel] 75 mg PO DAILY 11/15/18 11/16/18 11/15/18 History Empagliflozin [Jardiance] 25 mg PO DAILY 11/15/18 11/15/18 11/14/18 History Escitalopram [Lexapro] 10 mg PO DAILY 11/15/18 11/16/18 11/15/18 History Losartan/Hydrochlorothiazide 1 tab PO DAILY 11/15/18 11/16/18 11/15/18 History [Losartan-Hctz 50-12.5 mg Tab] Sitagliptin Phosphate [Januvia] 1 tab PO DAILY 11/15/18 11/16/18 11/15/18 History Active Medications: Generic Name Dose Route Start Last Admin Trade Name Freq PRN Reason Stop Dose Admin Acetaminophen 650 mg 11/16/18 01:02 Tylenol PO Q4H PRN Fever >101 Alprazolam 0.5 mg 11/16/18 22:00 11/16/18 22:07 Xanax PO 0.5 mg QHS [facility]E Administration Alprazolam 0.5 mg 11/16/18 10:00 11/16/18 09:14 Xanax PO 0.5 mg DAILY [facility] Administration Aspirin 81 mg 11/16/18 10:00 11/17/18 13:30 Halfprin Ec PO 81 mg DAILY [facility] Administration Benzonatate 100 mg 11/16/18 14:00 11/17/18 05:40 Tessalon Perles PO 100 mg Q8HR [facility] Administration Clopidogrel Bisulfate 75 mg 11/16/18 10:00 11/17/18 13:30 Plavix PO 75 mg DAILY [facility] Administration Dextrose 50 ml 11/16/18 01:06 D50w (25gm) Syringe IV PRN PRN Hypoglycemia Escitalopram Oxalate 10 mg 11/16/18 10:00 11/17/18 13:30 Lexapro PO 10 mg DAILY [facility] Administration Sodium Chloride 1,000 mls @ 125 mls/hr 11/16/18 02:00 11/16/18 17:16 Nacl 0.9% 1000 Ml IV 125 mls/hr DIRECT [facility] Administration Piperacillin Sod/Tazobactam Sod 3.375 gm in 50 mls @ 100 mls/hr 11/16/18 06:00 11/17/18 05:40 Zosyn/Ns 3.375gm/50ml IV 100 mls/hr Q8HR [facility] Administration Vancomycin HCl 1,500 mg/ 530 mls @ 333.333 mls/hr 11/16/18 18:00 11/17/18 05:41 Sodium Chloride IV 333.333 mls/hr Q12H [facility] Administration Sodium Chloride 500 mls @ 50 mls/hr 11/17/18 12:00 Nacl 0.9% 500 Ml IV 11/17/18 21:59 DIRECT PETE Insulin Human Regular 0 units 11/16/18 07:30 11/16/18 17:16 Humulin R SUB-Q Not Given AC [facility] Protocol Insulin Human Regular 0 units 11/16/18 22:00 11/16/18 22:07 Humulin R SUB-Q Not Given QHS [facility] Protocol Methylprednisolone Sodium Succinate 60 mg 11/17/18 11:00 Solu-Medrol IV Q8HR [facility] Morphine Sulfate 2 mg 11/17/18 13:15 Morphine IV Q6H PRN Pain, Moderate (4-6) Ondansetron HCl 4 mg 11/16/18 01:04 Zofran IV Q8H PRN Nausea And Vomiting Potassium Chloride 40 meq 11/16/18 10:00 11/17/18 13:30 K-Dur PO 40 meq QDAY [facility] Administration
--- NOTE | 2018-11-17 13:46 | XRay Report ---
AP CHEST: HISTORY: Post pericardiocentesis Recent pericardiocentesis was performed by cardiology. Cardiomegaly has decreased significantly. Heart size is borderline on today's exam. Mild decrease in pulmonary venous congestion and small left pleural effusion is also demonstrated. No pneumothorax or pneumomediastinum. IMPRESSION: No acute process.
[2018-11-17 14:26] LABS: Total Cells Counted 200 /mm3
--- NOTE | 2018-11-17 16:30 | Progress Note ---
Assessment and Plan Assessment and plan: --Large pericardial effusion with tamponade; on echocardiogram Status post emergency pericardiocentesis,1150ml of pericardial fluid drained Patient feels better, continue supportive care --Lung cancer; status post chemotherapy Oncology Dr. Schwab evaluation noted and appreciated Pt follows with pulm and onc [facility] --Possible right lung pneumonia; community-acquired Empiric antibiotics, Follow cultures, supportive care --Sepsis/lactic acidosis; secondary to pneumonia IV fluids antibiotics and supportive care --Hypokalemia; replaced --Elevated D dimers; negative PE, lung mass noted lower extremity venous Doppler to rule out DVT --Type 2 diabetes mellitus; Accu-Chek sliding scale coverage and ADA diet Oral hypoglycemics /long acting insulin as needed, check A1c --Obesity; BMI 35.7 Weight reduction and medically stable --DVT prophylaxis; Lovenox --Full CODE STATUS Plan of care is reviewed with the patient and her at the bedside I also discussed with the patient's nurse Critical care time 31 minutes History Interval history: Patient seen and examined medical records reviewed Patient underwent echocardiogram, revealed large pericardial effusion with tamponade Cardiology evaluated the patient, underwent stat pericardiocentesis Removal of 1150 mL of pericardial fluid, patient tolerated the procedure well Patient is alert awake and oriented 3 Not in acute distress Vital signs reviewed Hospitalist Physical - Constitutional Vitals: Temp Pulse Resp BP Pulse Ox 97.3 F L 107 H 20 123/72 94 11/17/18 13:03 11/17/18 13:02 11/17/18 13:02 11/17/18 13:02 11/17/18 13:02 General appearance: Present: no acute distress, well-nourished, obese - EENT Eyes: Present: PERRL, EOM intact - Neck Neck: Present: supple, normal ROM - Respiratory Respiratory effort: normal Respiratory: bilateral: diminished, negative: rales, rhonchi, wheezing - Cardiovascular Rhythm: regular Heart Sounds: Present: S1 & S2 - Extremities Extremities: no ischemia, No edema - Abdominal General gastrointestinal: soft, non-tender, non-distended, normal bowel sounds - Integumentary Integumentary: Present: clear, warm - Psychiatric Psychiatric: appropriate mood/affect, cooperative - Neurologic Neurologic: CNII-XII intact, moves all extremities Results - Labs CBC & Chem 7: 04/12/19 06:56 11/17/18 06:56 Labs: Laboratory Last Values WBC 9.5 K/mm3 (4.5-11.0) 11/17/18 06:56 RBC 4.26 M/mm3 (3.65-5.03) 11/17/18 06:56 Hgb 12.4 gm/dl (10.1-14.3) 11/17/18 06:56 Hct 37.9 % (30.3-42.9) 11/17/18 06:56 MCV 89 fl (79-97) 11/17/18 06:56 MCH 29 pg (28-32) 11/17/18 06:56 MCHC 33 % (30-34) 11/17/18 06:56 RDW 14.3 % (13.2-15.2) 11/17/18 06:56 Plt Count 297 K/mm3 (140-440) 11/17/18 06:56 Lymph % (Auto) 12.2 % (13.4-35.0) L 11/17/18 06:56 [place] % (Auto) 9.2 % (0.0-7.3) H 11/17/18 06:56 Eos % (Auto) 0.3 % (0.0-4.3) 11/17/18 06:56 Baso % (Auto) 0.4 % (0.0-1.8) 11/17/18 06:56 Lymph # 1.2 K/mm3 (1.2-5.4) 11/17/18 06:56 [place] # 0.9 K/mm3 (0.0-0.8) H 11/17/18 06:56 Eos # 0.0 K/mm3 (0.0-0.4) 11/17/18 06:56 Baso # 0.0 K/mm3 (0.0-0.1) 11/17/18 06:56 Seg Neutrophils % 77.9 % (40.0-70.0) H 11/17/18 06:56 Seg Neutrophils # 7.4 K/mm3 (1.8-7.7) 11/17/18 06:56 D-Dimer 914.62 ng/mlDDU (0-234) H 11/15/18 19:50 Sodium 139 mmol/L (137-145) 11/17/18 06:56 Potassium 3.7 mmol/L (3.6-5.0) 11/17/18 06:56 Chloride 105.1 mmol/L (98-107) 11/17/18 06:56 Carbon Dioxide 21 mmol/L (22-30) L 11/17/18 06:56 Anion Gap 17 mmol/L 11/17/18 06:56 BUN 8 mg/dL (7-17) 11/17/18 06:56 Creatinine 0.6 mg/dL (0.7-1.2) L 11/17/18 06:56 Estimated GFR > 60 ml/min 11/17/18 06:56 BUN/Creatinine Ratio 13 % 11/17/18 06:56 Glucose 127 mg/dL (65-100) H 11/17/18 06:56 POC Glucose 120 (70-105) H 11/17/18 08:12 Lactic Acid 2.50 mmol/L (0.7-2.0) H* 11/16/18 10:57 Calcium 8.9 mg/dL (8.4-10.2) 11/17/18 06:56 Magnesium 1.90 mg/dL (1.7-2.3) 11/17/18 06:56 Total Bilirubin 0.60 mg/dL (0.1-1.2) 11/17/18 06:56 AST 35 units/L (5-40) 11/17/18 06:56 ALT 30 units/L (7-56) 11/17/18 06:56 Alkaline Phosphatase 92 units/L (35-129) 11/17/18 06:56 Troponin T < 0.010 ng/mL (0.00-0.029) 11/15/18 21:58 NT-Pro-B Natriuret Pep 512.9 pg/mL (0-900) 11/15/18 19:50 Total Protein 6.6 g/dL (6.3-8.2) 11/17/18 06:56 Albumin 3.7 g/dL (3.9-5) L 11/17/18 06:56 Albumin/Globulin Ratio 1.3 % 11/17/18 06:56 Urine Color Yellow (Yellow) 11/15/18 23:37 Urine Turbidity Clear (Clear) 11/15/18 23:37 Urine pH 6.0 (5.0-7.0) 11/15/18 23:37 Ur Specific [place] 1.046 (1.003-1.030) H 11/15/18 23:37 Urine Protein <15 mg/dl mg/dL (Negative) 11/15/18 23:37 Urine Glucose (UA) >=500 mg/dL (Negative) 11/15/18 23:37 Urine Ketones 20 mg/dL (Negative) 11/15/18 23:37 Urine Blood Neg (Negative) 11/15/18 23:37 Urine Nitrite Neg (Negative) 11/15/18 23:37 Urine Bilirubin Neg (Negative) 11/15/18 23:37 Urine Urobilinogen < 2.0 mg/dL (<2.0) 11/15/18 23:37 Ur Leukocyte Esterase Tr (Negative) 11/15/18 23:37 Urine WBC (Auto) 2.0 /HPF (0.0-6.0) 11/15/18 23:37 Urine RBC (Auto) 2.0 /HPF (0.0-6.0) 11/15/18 23:37 U Epithel Cells (Auto) 2.0 /HPF (0-13.0) 11/15/18 23:37 Urine Mucus Few /HPF 11/15/18 23:37 Fluid Type Pericardial 11/17/18 11:54 Fluid Color Straw 11/17/18 11:54 Fluid Appearance Cloudy 11/17/18 11:54 Fluid WBC 1711 /mm3 11/17/18 11:54 Fluid RBC 2475 /mm3 11/17/18 11:54 Fluid Seg Neutrophils 48.0 % 11/17/18 11:54 Fluid Lymphocytes 48.5 % 11/17/18 11:54 Fluid Monocytes 3.0 % 11/17/18 11:54 Fluid Eosinophils 0.5 % 11/17/18 11:54 Active Medications - Current Medications Current Medications: Generic Name Dose Route Start Last Admin Trade Name Freq PRN Reason Stop Dose Admin Acetaminophen 650 mg 11/16/18 01:02 Tylenol PO Q4H PRN Fever >101 Alprazolam 0.5 mg 11/16/18 22:00 11/16/18 22:07 Xanax PO 0.5 mg QHS [facility] Administration Alprazolam 0.5 mg 11/16/18 10:00 11/16/18 09:14 Xanax PO 0.5 mg DAILY [facility] Administration Aspirin 81 mg 11/16/18 10:00 11/17/18 13:30 Halfprin Ec PO 81 mg DAILY [facility] Administration Benzonatate 100 mg 11/16/18 14:00 11/17/18 05:40 Tessalon Perles PO 100 mg Q8HR [facility] Administration Clopidogrel Bisulfate 75 mg 11/16/18 10:00 11/17/18 13:30 Plavix PO 75 mg DAILY [facility] Administration Dextrose 50 ml 11/16/18 01:06 D50w (25gm) Syringe IV PRN PRN Hypoglycemia Escitalopram Oxalate 10 mg 11/16/18 10:00 11/17/18 13:30 Lexapro PO 10 mg DAILY [facility] Administration Sodium Chloride 1,000 mls @ 125 mls/hr 11/16/18 02:00 11/16/18 17:16 Nacl 0.9% 1000 Ml IV 125 mls/hr DIRECT [facility] Administration Piperacillin Sod/Tazobactam Sod 3.375 gm in 50 mls @ 100 mls/hr 11/16/18 06:00 11/17/18 05:40 Zosyn/Ns 3.375gm/50ml IV 100 mls/hr Q8HR [facility] Administration Vancomycin HCl 1,500 mg/ 530 mls @ 333.333 mls/hr 11/16/18 18:00 11/17/18 05:41 Sodium Chloride IV 333.333 mls/hr Q12H [facility] Administration Sodium Chloride 500 mls @ 50 mls/hr 11/17/18 12:00 Nacl 0.9% 500 Ml IV 11/17/18 21:59 DIRECT PETE Insulin Human Regular 0 units 11/16/18 07:30 11/17/18 11:39 Humulin R SUB-Q Not Given AC [facility] Protocol Insulin Human Regular 0 units 11/16/18 22:00 11/16/18 22:07 Humulin R SUB-Q Not Given QHS [facility] Protocol Morphine Sulfate 2 mg 11/17/18 13:15 Morphine IV Q6H PRN Pain, Moderate (4-6) Ondansetron HCl 4 mg 11/16/18 01:04 Zofran IV Q8H PRN Nausea And Vomiting Potassium Chloride 40 meq 11/16/18 10:00 11/17/18 13:30 K-Dur PO 40 meq QDAY [facility]E Administration
--- NOTE | 2018-11-17 20:23 | Vascular Lab Report ---
PROCEDURE: VL VENOUS DUPLEX LE BILAT TECHNIQUE: Duplex Doppler sonography of the BILATERAL lower extremity deep veins. [place] scale imaging with and without compression, spectral waveform analysis with and without augmentation, and color fl ow Doppler were employed. HISTORY: elevated d dimers/evaluate for DVT COMPARISONS: None FINDINGS: RIGHT UPPER EXTREMITY: Deep Venous Thrombus: None Soft tissue abnormality: None LEFT UPPER EXTREMITY: Deep Venous Thrombus: None Soft tissue abnormality: None IMPRESSION: No evidence of deep venous thrombosis bilateral lower extremities This document is electronically signed by Keo Cole MD., November 17 2018 08:21:44 PM ET
--- NOTE | 2018-11-17 21:57 | Consultation ---
REFERRED BY: Felisha Robertson MD REASON FOR CONSULTATION: History of lung cancer, recent chemotherapy. HISTORY OF PRESENT ILLNESS: I saw the patient, a 63-year-old female, in the medical floor. I was able to get some information from Dr. Luu's office later. The patient has history of stage 4 lung cancer, squamous cell, T2b N2 M1. This was diagnosed in 04/2018. The patient is an ex-smoker and mass was present in the right upper lobe. The patient also had lymphadenopathy and widespread bilateral pulmonary mets. The patient received carboplatin and Taxol with dose reduction q.3 weeks for 6 cycles from 05/2018 until 08/31/2018. In October, PET/CT had shown disease progression and in November, Keytruda was initiated. The patient came to the hospital because of shortness of breath. The patient was diagnosed with pneumonia and recently placed on doxycycline. As she was continuing to having shortness of breath, she came to the hospital. PAST MEDICAL HISTORY: The patient has history of hypertension, CVA, diabetes. At this time, no headache, no visual disturbances. She is short of breath. No abdominal pain, no vomiting, no diarrhea, no dysuria. PAST SURGICAL HISTORY: Noncontributory. FAMILY HISTORY: Noncontributory. SOCIAL HISTORY: Ex-smoker. HOME MEDICATIONS: Included Xanax, aspirin, Plavix, Lexapro, losartan, Januvia. ALLERGIES: HYDROCODONE, METFORMIN, and OXYCODONE. MEDICATIONS: Include alprazolam, aspirin, Plavix, Lexapro, insulin. PHYSICAL EXAMINATION: VITAL SIGNS: Temperature is 97, pulse 115, respirations 16, BP 124/74. HEENT: No pallor. No icterus. NECK: No neck lymph nodes. HEART: S1, S2. LUNGS: Occasional wheeze and rales present. ABDOMEN: Soft. EXTREMITIES: No calf tenderness. NEUROLOGIC: Alert, awake. LABORATORY DATA: White cell 11, hemoglobin 14, MCV 88, platelets 336. Potassium 3.3, creatinine 0.7, bilirubin 0.4. RADIOLOGY: CT chest was done. Emphysematous changes, right upper lobe mass, multiple other nodularities, moderate to large pericardial effusion noted. ASSESSMENT: 1. Squamous cell non-small cell lung cancer diagnosed 2018 status post 6 doses of carboplatin and Taxol. Based on information, it appears Keytruda was started recently. This clinically maybe pneumonitis secondary to Keytruda. We will give steroid trial. Later was told that she did not receive keytruda - steroid stopped 2. Mention of emphysema. 3. Mention of pericardial effusion. We will discuss with hospitalist. 4. History of hypertension. 5. History of cerebrovascular accident. 6. History of diabetes. 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 I will follow the patient during inpatient stay. JOB# [id number] MELQUIADES/LIZETTE OVIEDO
[2018-11-17] MEDS: XANAX PO SCH (22:08)
[2018-11-17] MEDS: MORPHINE IV PRN (22:10)
--- NOTE | 2018-11-17 22:58 | Progress Note ---
Assessment and Plan Pericardial effusion and tamponade - s/p hemodynamically unstable s/p emergency pericardiocentesis with 1150 ml of serous fluid drainage (complete resolution of effusion at the end of procedure) Repeat limited echo today to evaluate for any recurrence of pericardial fluid - If any then patient will need transfer to pericardial window Metastatic lung cancer - management per oncology Type II DM - management per primary History of CVA on aspirin and plavix Subjective Date of service: 11/18/18 Principal diagnosis: Lung ca - pericardial effusion Interval history: Resting comfortably. No acute events. Pericardial drain in place. Objective Vital Signs Temp Pulse Resp BP BP Pulse Ox 11/17/18 22:10 20 11/17/18 19:21 99.0 F 115 H 18 143/85 90 11/17/18 17:21 97.5 F L 11/17/18 17:20 113 H 20 129/76 95 11/17/18 13:03 97.3 F L 11/17/18 13:02 107 H 20 123/72 94 11/17/18 08:01 98.2 F 11/17/18 07:59 111 H 22 124/84 96 11/17/18 04:27 98.6 F 117 H 22 133/78 94 11/17/18 00:00 98.1 F 74 16 139/79 100 - Physical Examination Abdomen: Positive: Soft Extremities: Absent: edema - Labs and Meds Cardiac Enzymes 11/17/18 Range/Units 06:56 AST 35 (5-40) units/L CBC 11/17/18 Range/Units 06:56 WBC 9.5 (4.5-11.0) K/mm3 RBC 4.26 (3.65-5.03) M/mm3 Hgb 12.4 (10.1-14.3) gm/dl Hct 37.9 (30.3-42.9) % Plt Count 297 (140-440) K/mm3 Lymph # 1.2 (1.2-5.4) K/mm3 [place] # 0.9 H (0.0-0.8) K/mm3 Eos # 0.0 (0.0-0.4) K/mm3 Baso # 0.0 (0.0-0.1) K/mm3 Comprehensive Metabolic Panel 11/17/18 Range/Units 06:56 Sodium 139 (137-145) mmol/L Potassium 3.7 (3.6-5.0) mmol/L Chloride 105.1 (98-107) mmol/L Carbon Dioxide 21 L (22-30) mmol/L BUN 8 (7-17) mg/dL Creatinine 0.6 L (0.7-1.2) mg/dL Glucose 127 H (65-100) mg/dL Calcium 8.9 (8.4-10.2) mg/dL AST 35 (5-40) units/L ALT 30 (7-56) units/L Alkaline Phosphatase 92 (35-129) units/L Total Protein 6.6 (6.3-8.2) g/dL Albumin 3.7 L (3.9-5) g/dL
[2018-11-18] MEDS: HumuLIN R SUB-Q SCH ×5 (00:55→21:51)
--- NOTE | 2018-11-18 01:26 | Procedure Note ---
PERICARDIOCENTESIS REPORT ORDERING PHYSICIAN: Quyen Corona MD PROCEDURE PERFORMED: Pericardiocentesis with drainage of 1150 mL of serous pericardial fluid. DESCRIPTION OF PROCEDURE: After obtaining the consent, the patient was draped using sterile technique. A 2% lidocaine was injected into the subxiphoid area. Using a Seldinger technique, the needle was advanced into the pericardial space. A J-tip wire was then introduced and position was verified with echocardiography as well as angiography. A 6-Turkmen dilator was then introduced. A 6-Turkmen pigtail catheter was then positioned inside the pericardial space. A 1150 mL of serous fluid was obtained with complete resolution of the pericardial effusion and the tamponade physiology by ultrasound. The patient tolerated the procedure well without complications. The pericardial fluid was sent for cell count, culture as well as cytology. IMPRESSION: Successful pericardiocentesis with removal of 1150 mL of serous fluid. RECOMMENDATION: Obtain a chest x-ray as well as a repeat echo in 24 hours to assess for fluid reaccumulation. JOB# [id number] ANA LUISA/LIZETTE
[2018-11-18] MEDS: TESSALON PERLES PO SCH ×3 (05:55→21:50)
[2018-11-18] MEDS: ZOSYN/NS 3.375GM/50ML 3.375 GM/50 ML BAG IV SCH ×3 (05:56→21:50)
[2018-11-18] MEDS: VANCOMYCIN 1,500 MG in NACL 0.9% 500 ML 500 ML IV SCH ×2 (05:56→18:43)
--- NOTE | 2018-11-18 08:30 | Progress Note ---
Assessment and Plan Assessment and plan: --Large pericardial effusion with tamponade; on echocardiogram Status post emergency pericardiocentesis,1150ml of pericardial fluid drained Patient feels better, f/u ECHO today,continue supportive care --Metastatic Lung cancer; status post chemotherapy Oncology Dr. Schwab evaluation noted and appreciated Pt follows with pulm and onc [facility] --Possible right lung pneumonia; community-acquired Empiric antibiotics, Follow cultures, supportive care --Sepsis/lactic acidosis; secondary to pneumonia IV fluids antibiotics and supportive care --Hypokalemia; replaced --Elevated D dimers; negative PE, lung mass noted lower extremity venous Doppler to rule out DVT --Type 2 diabetes mellitus; Accu-Chek sliding scale coverage and ADA diet Oral hypoglycemics /long acting insulin as needed, check A1c --Obesity; BMI 35.7 Weight reduction and medically stable --DVT prophylaxis; Lovenox --Full CODE STATUS Plan of care is reviewed with the patient and her at the bedside I also discussed with the patient's nurse History Interval history: Patient seen and examined medical records reviewed No new events reported by the nursing staff Patient underwent large volume pericardiocentesis yesterday Feeling slightly better, cardiology following, repeat echo today Vital signs reviewed Hospitalist Physical - Constitutional Vitals: Temp Pulse Resp BP Pulse Ox 98.0 F 98 H 20 132/75 93 11/18/18 03:56 11/18/18 03:56 11/18/18 03:56 11/18/18 03:56 11/18/18 03:56 General appearance: Present: no acute distress, well-nourished, obese - EENT Eyes: Present: PERRL, EOM intact, scleral icterus, conjunctival injection, miosis, mydriasis - Neck Neck: Present: supple, normal ROM - Respiratory Respiratory effort: normal Respiratory: bilateral: diminished, negative: rales, rhonchi, wheezing - Cardiovascular Rhythm: regular Heart Sounds: Present: S1 & S2 - Extremities Extremities: no ischemia, No edema - Abdominal General gastrointestinal: soft, non-tender, non-distended, normal bowel sounds - Integumentary Integumentary: Present: clear, warm - Psychiatric Psychiatric: appropriate mood/affect, cooperative - Neurologic Neurologic: CNII-XII intact, moves all extremities Results - Labs CBC & Chem 7: 11/17/18 06:56 11/17/18 06:56 Labs: Laboratory Last Values WBC 9.5 K/mm3 (4.5-11.0) 11/17/18 06:56 RBC 4.26 M/mm3 (3.65-5.03) 11/17/18 06:56 Hgb 12.4 gm/dl (10.1-14.3) 11/17/18 06:56 Hct 37.9 % (30.3-42.9) 11/17/18 06:56 MCV 89 fl (79-97) 11/17/18 06:56 MCH 29 pg (28-32) 11/17/18 06:56 MCHC 33 % (30-34) 11/17/18 06:56 RDW 14.3 % (13.2-15.2) 11/17/18 06:56 Plt Count 297 K/mm3 (140-440) 11/17/18 06:56 Lymph % (Auto) 12.2 % (13.4-35.0) L 11/17/18 06:56 [place] % (Auto) 9.2 % (0.0-7.3) H 11/17/18 06:56 Eos % (Auto) 0.3 % (0.0-4.3) 11/17/18 06:56 Baso % (Auto) 0.4 % (0.0-1.8) 11/17/18 06:56 Lymph # 1.2 K/mm3 (1.2-5.4) 11/17/18 06:56 [place] # 0.9 K/mm3 (0.0-0.8) H 11/17/18 06:56 Eos # 0.0 K/mm3 (0.0-0.4) 11/17/18 06:56 Baso # 0.0 K/mm3 (0.0-0.1) 11/17/18 06:56 Seg Neutrophils % 77.9 % (40.0-70.0) H 11/17/18 06:56 Seg Neutrophils # 7.4 K/mm3 (1.8-7.7) 11/17/18 06:56 D-Dimer 914.62 ng/mlDDU (0-234) H 11/15/18 19:50 Sodium 139 mmol/L (137-145) 11/17/18 06:56 Potassium 3.7 mmol/L (3.6-5.0) 11/17/18 06:56 Chloride 105.1 mmol/L (98-107) 11/17/18 06:56 Carbon Dioxide 21 mmol/L (22-30) L 11/17/18 06:56 Anion Gap 17 mmol/L 11/17/18 06:56 BUN 8 mg/dL (7-17) 11/17/18 06:56 Creatinine 0.6 mg/dL (0.7-1.2) L 11/17/18 06:56 Estimated GFR > 60 ml/min 11/17/18 06:56 BUN/Creatinine Ratio 13 % 11/17/18 06:56 Glucose 127 mg/dL (65-100) H 11/17/18 06:56 POC Glucose 220 (70-105) H 11/17/18 21:37 Lactic Acid 2.50 mmol/L (0.7-2.0) H* 11/16/18 10:57 Calcium 8.9 mg/dL (8.4-10.2) 11/17/18 06:56 Magnesium 1.90 mg/dL (1.7-2.3) 11/17/18 06:56 Total Bilirubin 0.60 mg/dL (0.1-1.2) 11/17/18 06:56 AST 35 units/L (5-40) 11/17/18 06:56 ALT 30 units/L (7-56) 11/17/18 06:56 Alkaline Phosphatase 92 units/L (35-129) 11/17/18 06:56 Troponin T < 0.010 ng/mL (0.00-0.029) 11/15/18 21:58 NT-Pro-B Natriuret Pep 512.9 pg/mL (0-900) 11/15/18 19:50 Total Protein 6.6 g/dL (6.3-8.2) 11/17/18 06:56 Albumin 3.7 g/dL (3.9-5) L 11/17/18 06:56 Albumin/Globulin Ratio 1.3 % 11/17/18 06:56 Urine Color Yellow (Yellow) 11/15/18 23:37 Urine Turbidity Clear (Clear) 11/15/18 23:37 Urine pH 6.0 (5.0-7.0) 11/15/18 23:37 Ur Specific [place] 1.046 (1.003-1.030) H 11/15/18 23:37 Urine Protein <15 mg/dl mg/dL (Negative) 11/15/18 23:37 Urine Glucose (UA) >=500 mg/dL (Negative) 11/15/18 23:37 Urine Ketones 20 mg/dL (Negative) 11/15/18 23:37 Urine Blood Neg (Negative) 11/15/18 23:37 Urine Nitrite Neg (Negative) 11/15/18 23:37 Urine Bilirubin Neg (Negative) 11/15/18 23:37 Urine Urobilinogen < 2.0 mg/dL (<2.0) 11/15/18 23:37 Ur Leukocyte Esterase Tr (Negative) 11/15/18 23:37 Urine WBC (Auto) 2.0 /HPF (0.0-6.0) 11/15/18 23:37 Urine RBC (Auto) 2.0 /HPF (0.0-6.0) 11/15/18 23:37 U Epithel Cells (Auto) 2.0 /HPF (0-13.0) 11/15/18 23:37 Urine Mucus Few /HPF 11/15/18 23:37 Fluid Type Pericardial 11/17/18 11:54 Fluid Color Straw 11/17/18 11:54 Fluid Appearance Cloudy 11/17/18 11:54 Fluid WBC 1711 /mm3 11/17/18 11:54 Fluid RBC 2475 /mm3 11/17/18 11:54 Fluid Seg Neutrophils 48.0 % 11/17/18 11:54 Fluid Lymphocytes 48.5 % 11/17/18 11:54 Fluid Monocytes 3.0 % 11/17/18 11:54 Fluid Eosinophils 0.5 % 11/17/18 11:54 Active Medications - Current Medications Current Medications: Generic Name Dose Route Start Last Admin Trade Name Freq PRN Reason Stop Dose Admin Acetaminophen 650 mg 11/16/18 01:02 Tylenol PO Q4H PRN Fever >101 Alprazolam 0.5 mg 11/16/18 22:00 11/17/18 22:08 Xanax PO 0.5 mg QHS PETE Administration Alprazolam 0.5 mg 11/16/18 10:00 11/16/18 09:14 Xanax PO 0.5 mg DAILY PETE Administration Aspirin 81 mg 11/16/18 10:00 11/17/18 13:30 Halfprin Ec PO 81 mg DAILY PETE Administration Benzonatate 100 mg 11/16/18 14:00 11/18/18 05:55 Tessalon Perles PO 100 mg Q8HR PETE Administration Clopidogrel Bisulfate 75 mg 11/16/18 10:00 11/17/18 13:30 Plavix PO 75 mg DAILY PETE Administration Dextrose 50 ml 11/16/18 01:06 D50w (25gm) Syringe IV PRN PRN Hypoglycemia Escitalopram Oxalate 10 mg 11/16/18 10:00 11/17/18 13:30 Lexapro PO 10 mg DAILY PETE Administration Sodium Chloride 1,000 mls @ 125 mls/hr 11/16/18 02:00 11/16/18 17:16 Nacl 0.9% 1000 Ml IV 125 mls/hr DIRECT PETE Administration Piperacillin Sod/Tazobactam Sod 3.375 gm in 50 mls @ 100 mls/hr 11/16/18 06:00 11/18/18 05:56 Zosyn/Ns 3.375gm/50ml IV 100 mls/hr Q8HR PETE Administration Vancomycin HCl 1,500 mg/ 530 mls @ 333.333 mls/hr 11/16/18 18:00 11/18/18 05:56 Sodium Chloride IV 333.333 mls/hr Q12H PETE Administration Insulin Human Regular 0 units 11/16/18 07:30 11/17/18 11:39 Humulin R SUB-Q Not Given AC PETE Protocol Insulin Human Regular 0 units 11/16/18 22:00 11/18/18 01:07 Humulin R SUB-Q 2 units QHS PETE Administration Protocol Morphine Sulfate 2 mg 11/17/18 13:15 11/17/18 22:10 Morphine IV 2 mg Q6H PRN Administration Pain, Moderate (4-6) Ondansetron HCl 4 mg 11/16/18 01:04 Zofran IV Q8H PRN Nausea And Vomiting Potassium Chloride 40 meq 11/16/18 10:00 11/17/18 13:30 K-Dur PO 40 meq QDAY PETE Administration
[2018-11-18] MEDS: XANAX PO SCH ×3 (10:39→21:51)
[2018-11-18] MEDS: K-DUR PO SCH (10:40)
[2018-11-18] MEDS: LEXAPRO PO SCH (10:40)
[2018-11-18] MEDS: PLAVIX PO SCH (10:40)
[2018-11-18] MEDS: HALFPRIN EC PO SCH (10:40)
[2018-11-18] MEDS: MORPHINE IV PRN ×3 (10:49→22:31)
--- NOTE | 2018-11-18 16:24 | Hem/Onc Progress Note ---
Assessment and Plan lung ca sq cell s/p 6 cycles of carbo - taxol - last aug 2018 due to disease progression - the plan was to change to keytruda pt was SOB I d/w dr flores office - pt did not get keytruda SOB sec to pericardial effusion fluid was drained - feeling better d/w 1. Squamous cell non-small cell lung cancer diagnosed 2018 status post 6 doses of carboplatin and Taxol. I was under the impression that keytruda was started and I gave trial of Steroid - this was stopped. 2. Mention of emphysema. 3. Mention of pericardial effusion. 4. History of hypertension. 5. History of cerebrovascular accident. 6. History of diabetes. 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 I will follow the patient during inpatient stay. 11/18 better after pericardial fluid removal once stable - pt will go and see her primary oncologist - Patient Problems (1) Lung cancer Current Visit: Yes Status: Acute Subjective Date of service: 11/18/18 Principal diagnosis: lung ca Interval history: feeling better Objective - Constitutional Vitals: Last Vital Signs Temp 97.9 F 11/18/18 13:13 Pulse 91 H 11/18/18 13:13 Resp 16 11/18/18 13:13 BP 122/69 11/18/18 13:13 Pulse Ox 95 11/18/18 13:13 Pain Intensity (0-10): denies any pain General appearance: no acute distress Performance status: 3-limited selfcare - EENT Eyes: EOM intact ENT: clear oral mucosa Lymph node exam: negative cervical - Neck Neck: normal ROM - Respiratory Respiratory effort: Positive: normal Respiratory: bilateral: CTA (anteriorly) - Cardiovascular Heart Sounds: Present: S1 & S2 Extremities: No edema - Gastrointestinal General gastrointestinal: Present: soft, non-tender Rectal Exam: deferred - Genitourinary Female genitourinary: Present: deferred - Integumentary Integumentary: warm - Musculoskeletal Musculoskeletal: generalized weakness - Neurologic Neurologic: moves all extremities - Labs Lab Results: Laboratory Results - last 24 hr 11/17/18 11/17/18 11/18/18 17:10 21:37 08:36 POC Glucose 119 H 220 H 138 H 11/18/18 11:50 POC Glucose 130 H Medications & Allergies - Medications Allergies/Adverse Reactions: Allergies hydrocodone Adverse Reaction (Verified 11/16/18 00:09) Anaphylaxis metformin Adverse Reaction (Verified 11/16/18 00:09) Anaphylaxis oxycodone [From OxyContin] Adverse Reaction (Verified 11/16/18 00:09) Angioedema Home Medications: Home Medications Medication Instructions Recorded Confirmed Last Taken Type ALPRAZolam [Xanax TAB] 0.5 mg PO DAILY 11/15/18 11/16/18 11/15/18 History Aspirin [Aspir-Low] 81 mg PO DAILY 11/15/18 11/16/18 11/15/18 History Clopidogrel Bisulfate [Clopidogrel] 75 mg PO DAILY 11/15/18 11/16/18 11/15/18 History Empagliflozin [Jardiance] 25 mg PO DAILY 11/15/18 11/15/18 11/14/18 History Escitalopram [Lexapro] 10 mg PO DAILY 11/15/18 11/16/18 11/15/18 History Losartan/Hydrochlorothiazide 1 tab PO DAILY 11/15/18 11/16/18 11/15/18 History [Losartan-Hctz 50-12.5 mg Tab] Sitagliptin Phosphate [Januvia] 1 tab PO DAILY 11/15/18 11/16/18 11/15/18 History Active Medications: Generic Name Dose Route Start Last Admin Trade Name Freq PRN Reason Stop Dose Admin Acetaminophen 650 mg 11/16/18 01:02 Tylenol PO Q4H PRN Fever >101 Alprazolam 0.5 mg 11/16/18 22:00 11/17/18 22:08 Xanax PO 0.5 mg QHS PETE Administration Alprazolam 0.5 mg 11/16/18 10:00 11/18/18 10:42 Xanax PO 0.5 mg DAILY PETE Administration Aspirin 81 mg 11/16/18 10:00 11/18/18 10:40 Halfprin Ec PO 81 mg DAILY PETE Administration Benzonatate 100 mg 11/16/18 14:00 11/18/18 15:32 Tessalon Perles PO 100 mg Q8HR PETE Administration Clopidogrel Bisulfate 75 mg 11/16/18 10:00 11/18/18 10:40 Plavix PO 75 mg DAILY PETE Administration Dextrose 50 ml 11/16/18 01:06 D50w (25gm) Syringe IV PRN PRN Hypoglycemia Escitalopram Oxalate 10 mg 11/16/18 10:00 11/18/18 10:40 Lexapro PO 10 mg DAILY PETE Administration Sodium Chloride 1,000 mls @ 125 mls/hr 11/16/18 02:00 11/16/18 17:16 Nacl 0.9% 1000 Ml IV 125 mls/hr DIRECT PETE Administration Piperacillin Sod/Tazobactam Sod 3.375 gm in 50 mls @ 100 mls/hr 11/16/18 06:00 11/18/18 05:56 Zosyn/Ns 3.375gm/50ml IV 100 mls/hr Q8HR PETE Administration Vancomycin HCl 1,500 mg/ 530 mls @ 333.333 mls/hr 11/16/18 18:00 11/18/18 05:56 Sodium Chloride IV 333.333 mls/hr Q12H PETE Administration Insulin Human Regular 0 units 11/16/18 07:30 11/18/18 13:00 Humulin R SUB-Q Not Given AC PETE Protocol Insulin Human Regular 0 units 11/16/18 22:00 11/18/18 01:07 Humulin R SUB-Q 2 units QHS PETE Administration Protocol Morphine Sulfate 2 mg 11/17/18 13:15 11/18/18 10:49 Morphine IV 2 mg Q6H PRN Administration Pain, Moderate (4-6) Ondansetron HCl 4 mg 11/16/18 01:04 Zofran IV Q8H PRN Nausea And Vomiting Potassium Chloride 40 meq 11/16/18 10:00 11/18/18 10:40 K-Dur PO 40 meq QDAY PETE Administration
[2018-11-19] MEDS: VANCOMYCIN 1,500 MG in NACL 0.9% 500 ML 500 ML IV SCH ×2 (06:08→18:41)
[2018-11-19] MEDS: ZOSYN/NS 3.375GM/50ML 3.375 GM/50 ML BAG IV SCH ×3 (06:08→22:38)
[2018-11-19] MEDS: TESSALON PERLES PO SCH ×3 (06:09→22:41)
[2018-11-19] MEDS: HumuLIN R SUB-Q SCH ×4 (09:25→22:42)
[2018-11-19] MEDS: MORPHINE IV PRN ×2 (09:43→18:45)
[2018-11-19] MEDS: HALFPRIN EC PO SCH (09:46)
[2018-11-19] MEDS: K-DUR PO SCH (09:46)
[2018-11-19] MEDS: PLAVIX PO SCH (09:47)
[2018-11-19] MEDS: LEXAPRO PO SCH (09:47)
--- NOTE | 2018-11-19 09:47 | Progress Note ---
Assessment and Plan Pericardial effusion and tamponade - s/p hemodynamically unstable s/p emergency pericardiocentesis with 1150 ml of serous fluid drainage (complete resolution of effusion at the end of procedure) Repeat limited echo shows presence of pericardial fluid, but not significantly changed from echo on the previous day. No tamponade on echo. Pat ient clinically is hemodynamically stable. Metastatic lung cancer - management per oncology Type II DM - management per primary History of CVA on aspirin and plavix Subjective Principal diagnosis: Lung ca - pericardial effusion Interval history: Resting comfortably. No acute events. Pericardial drain in place. Objective Vital Signs Temp Pulse Resp BP Pulse Ox 11/19/18 07:28 98.6 F 112 H 16 148/91 94 11/19/18 04:41 98.9 F 110 H 22 141/91 93 11/19/18 00:17 99.1 F 107 H 22 138/76 92 11/18/18 21:00 20 94 11/18/18 19:51 98.3 F 99 H 22 137/79 93 11/18/18 17:21 98.4 F 97 H 18 124/69 94 11/18/18 13:13 97.9 F 91 H 16 122/69 95 - Physical Examination Abdomen: Positive: Soft Extremities: Absent: edema
[2018-11-19] MEDS: XANAX PO SCH ×2 (09:58→22:45)
--- NOTE | 2018-11-19 11:33 | Progress Note ---
Assessment and Plan Assessment and plan: --Large pericardial effusion with tamponade; s/p emergency pericardiocentesis,11/17/18 and removal of 1150ml of pericardial fluid. Patient feels better, f/u ECHO today, moderate effusion, no tamponade Cardiology following --Metastatic Lung cancer; status post chemotherapy Oncology Dr. Schwab evaluation noted and appreciated Pt follows with pulm and onc [facility] --Possible right lung pneumonia; community-acquired Empiric antibiotics, Follow cultures, supportive care --Sepsis/lactic acidosis; secondary to pneumonia IV fluids antibiotics and supportive care --Hypokalemia; replaced --Elevated D dimers; negative PE, lung mass noted lower extremity venous Doppler to rule out DVT --Type 2 diabetes mellitus; Accu-Chek sliding scale coverage and ADA diet Oral hypoglycemics /long acting insulin as needed, check A1c --Obesity; BMI 35.7 Weight reduction and medically stable --DVT prophylaxis; Lovenox --Full CODE STATUS Plan of care is reviewed with the patient and her at the bedside I also discussed with the patient's nurse History Interval history: Sincerely and examined medical records reviewed Patient and report that she could not sleep last night Tired and trying to sleep Denies chest pain or shortness of breath Follow-up echo show moderate diffusion Vital signs are reviewed Hospitalist Physical - Constitutional Vitals: Temp Pulse Resp BP Pulse Ox 98.6 F 112 H 16 148/91 94 11/19/18 07:28 11/19/18 07:28 11/19/18 07:28 11/19/18 07:28 11/19/18 07:28 General appearance: Present: no acute distress, well-nourished, obese - EENT Eyes: Present: PERRL, EOM intact - Neck Neck: Present: supple, normal ROM - Respiratory Respiratory effort: normal Respiratory: bilateral: diminished, rhonchi, negative: rales, wheezing - Cardiovascular Rhythm: regular Heart Sounds: Present: S1 & S2 - Extremities Extremities: no ischemia, No edema - Abdominal General gastrointestinal: soft, non-tender, non-distended, normal bowel sounds - Integumentary Integumentary: Present: clear, warm - Psychiatric Psychiatric: appropriate mood/affect, cooperative - Neurologic Neurologic: CNII-XII intact, moves all extremities Results - Labs CBC & Chem 7: 04/12/19 06:56 11/17/18 06:56 Labs: Laboratory Last Values WBC 9.5 K/mm3 (4.5-11.0) 11/17/18 06:56 RBC 4.26 M/mm3 (3.65-5.03) 11/17/18 06:56 Hgb 12.4 gm/dl (10.1-14.3) 11/17/18 06:56 Hct 37.9 % (30.3-42.9) 11/17/18 06:56 MCV 89 fl (79-97) 11/17/18 06:56 MCH 29 pg (28-32) 11/17/18 06:56 MCHC 33 % (30-34) 11/17/18 06:56 RDW 14.3 % (13.2-15.2) 11/17/18 06:56 Plt Count 297 K/mm3 (140-440) 11/17/18 06:56 Lymph % (Auto) 12.2 % (13.4-35.0) L 11/17/18 06:56 [place] % (Auto) 9.2 % (0.0-7.3) H 11/17/18 06:56 Eos % (Auto) 0.3 % (0.0-4.3) 11/17/18 06:56 Baso % (Auto) 0.4 % (0.0-1.8) 11/17/18 06:56 Lymph # 1.2 K/mm3 (1.2-5.4) 11/17/18 06:56 [place] # 0.9 K/mm3 (0.0-0.8) H 11/17/18 06:56 Eos # 0.0 K/mm3 (0.0-0.4) 11/17/18 06:56 Baso # 0.0 K/mm3 (0.0-0.1) 11/17/18 06:56 Seg Neutrophils % 77.9 % (40.0-70.0) H 11/17/18 06:56 Seg Neutrophils # 7.4 K/mm3 (1.8-7.7) 11/17/18 06:56 D-Dimer 914.62 ng/mlDDU (0-234) H 11/15/18 19:50 Sodium 139 mmol/L (137-145) 11/17/18 06:56 Potassium 3.7 mmol/L (3.6-5.0) 11/17/18 06:56 Chloride 105.1 mmol/L (98-107) 11/17/18 06:56 Carbon Dioxide 21 mmol/L (22-30) L 11/17/18 06:56 Anion Gap 17 mmol/L 11/17/18 06:56 BUN 8 mg/dL (7-17) 11/17/18 06:56 Creatinine 0.6 mg/dL (0.7-1.2) L 11/17/18 06:56 Estimated GFR > 60 ml/min 11/17/18 06:56 BUN/Creatinine Ratio 13 % 11/17/18 06:56 Glucose 127 mg/dL (65-100) H 11/17/18 06:56 POC Glucose 132 (70-105) H 11/19/18 07:34 Lactic Acid 2.50 mmol/L (0.7-2.0) H* 11/16/18 10:57 Calcium 8.9 mg/dL (8.4-10.2) 11/17/18 06:56 Magnesium 1.90 mg/dL (1.7-2.3) 11/17/18 06:56 Total Bilirubin 0.60 mg/dL (0.1-1.2) 11/17/18 06:56 AST 35 units/L (5-40) 11/17/18 06:56 ALT 30 units/L (7-56) 11/17/18 06:56 Alkaline Phosphatase 92 units/L (35-129) 11/17/18 06:56 Troponin T < 0.010 ng/mL (0.00-0.029) 11/15/18 21:58 NT-Pro-B Natriuret Pep 512.9 pg/mL (0-900) 11/15/18 19:50 Total Protein 6.6 g/dL (6.3-8.2) 11/17/18 06:56 Albumin 3.7 g/dL (3.9-5) L 11/17/18 06:56 Albumin/Globulin Ratio 1.3 % 11/17/18 06:56 Urine Color Yellow (Yellow) 11/15/18 23:37 Urine Turbidity Clear (Clear) 11/15/18 23:37 Urine pH 6.0 (5.0-7.0) 11/15/18 23:37 Ur Specific [place] 1.046 (1.003-1.030) H 11/15/18 23:37 Urine Protein <15 mg/dl mg/dL (Negative) 11/15/18 23:37 Urine Glucose (UA) >=500 mg/dL (Negative) 11/15/18 23:37 Urine Ketones 20 mg/dL (Negative) 11/15/18 23:37 Urine Blood Neg (Negative) 11/15/18 23:37 Urine Nitrite Neg (Negative) 11/15/18 23:37 Urine Bilirubin Neg (Negative) 11/15/18 23:37 Urine Urobilinogen < 2.0 mg/dL (<2.0) 11/15/18 23:37 Ur Leukocyte Esterase Tr (Negative) 11/15/18 23:37 Urine WBC (Auto) 2.0 /HPF (0.0-6.0) 11/15/18 23:37 Urine RBC (Auto) 2.0 /HPF (0.0-6.0) 11/15/18 23:37 U Epithel Cells (Auto) 2.0 /HPF (0-13.0) 11/15/18 23:37 Urine Mucus Few /HPF 11/15/18 23:37 Fluid Type Pericardial 11/17/18 11:54 Fluid Color Straw 11/17/18 11:54 Fluid Appearance Cloudy 11/17/18 11:54 Fluid WBC 1711 /mm3 11/17/18 11:54 Fluid RBC 2475 /mm3 11/17/18 11:54 Fluid Seg Neutrophils 48.0 % 11/17/18 11:54 Fluid Lymphocytes 48.5 % 11/17/18 11:54 Fluid Monocytes 3.0 % 11/17/18 11:54 Fluid Eosinophils 0.5 % 11/17/18 11:54 Vancomycin Trough 7.6 ug/mL (5.0-20.0) 11/18/18 16:52 Active Medications - Current Medications Current Medications: Generic Name Dose Route Start Last Admin Trade Name Freq PRN Reason Stop Dose Admin Acetaminophen 650 mg 11/16/18 01:02 Tylenol PO Q4H PRN Fever >101 Alprazolam 0.5 mg 11/16/18 22:00 11/18/18 21:51 Xanax PO 0.5 mg QHS PETE Administration Alprazolam 0.5 mg 11/16/18 10:00 11/19/18 09:58 Xanax PO 0.5 mg DAILY PETE Administration Aspirin 81 mg 11/16/18 10:00 11/19/18 09:46 Halfprin Ec PO 81 mg DAILY PETE Administration Benzonatate 100 mg 11/16/18 14:00 11/19/18 06:09 Tessalon Perles PO 100 mg Q8HR PETE Administration Clopidogrel Bisulfate 75 mg 11/16/18 10:00 11/19/18 09:47 Plavix PO 75 mg DAILY PETE Administration Dextrose 50 ml 11/16/18 01:06 D50w (25gm) Syringe IV PRN PRN Hypoglycemia Escitalopram Oxalate 10 mg 11/16/18 10:00 11/19/18 09:47 Lexapro PO 10 mg DAILY PETE Administration Sodium Chloride 1,000 mls @ 125 mls/hr 11/16/18 02:00 11/16/18 17:16 Nacl 0.9% 1000 Ml IV 125 mls/hr DIRECT PETE Administration Piperacillin Sod/Tazobactam Sod 3.375 gm in 50 mls @ 100 mls/hr 11/16/18 06:00 11/19/18 06:08 Zosyn/Ns 3.375gm/50ml IV 100 mls/hr Q8HR PETE Administration Vancomycin HCl 1,500 mg/ 530 mls @ 333.333 mls/hr 11/16/18 18:00 11/19/18 06:08 Sodium Chloride IV 333.333 mls/hr Q12H PETE Administration Insulin Human Regular 0 units 11/16/18 07:30 11/19/18 09:25 Humulin R SUB-Q Not Given AC [facility] Protocol Insulin Human Regular 0 units 11/16/18 22:00 11/18/18 21:51 Humulin R SUB-Q Not Given QHS [facility] Protocol Morphine Sulfate 2 mg 11/17/18 13:15 11/19/18 09:43 Morphine IV 2 mg Q6H PRN Administration Pain, Moderate (4-6) Ondansetron HCl 4 mg 11/16/18 01:04 11/19/18 09:45 Zofran IV 4 mg Q8H PRN Administration Nausea And Vomiting Potassium Chloride 40 meq 11/16/18 10:00 04/14/19 09:46 K-Dur PO 40 meq QDAY PETE Administration
[2018-11-19] MEDS ORDERED: AMBIEN PO PRN (13:21)
[2018-11-19] MEDS: NACL 0.9% 1000 ML 1,000 ML IV SCH (14:46)
--- NOTE | 2018-11-19 17:22 | Hem/Onc Progress Note ---
Assessment and Plan lung ca sq cell s/p 6 cycles of carbo - taxol - last aug 2018 due to disease progression - the plan was to change to keytruda pt was SOB I d/w dr flores office - pt did not get keytruda SOB sec to pericardial effusion fluid was drained - feeling better d/w 1. Squamous cell non-small cell lung cancer diagnosed 2018 status post 6 doses of carboplatin and Taxol. I was under the impression that keytruda was started and I gave trial of Steroid - this was stopped. 2. Mention of emphysema. 3. Mention of pericardial effusion. 4. History of hypertension. 5. History of cerebrovascular accident. 6. History of diabetes. 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 I will follow the patient during inpatient stay. 11/18 better after pericardial fluid removal once stable - pt will go and see her primary oncologist 11/19 wants to go home adv pt to ambulate - Patient Problems (1) Lung cancer Current Visit: Yes Status: Acute Subjective Date of service: 11/19/18 Principal diagnosis: lung ca Interval history: pt wants to go home Objective - Constitutional Vitals: Last Vital Signs Temp 99.2 F 11/19/18 13:03 Pulse 113 H 11/19/18 13:03 Resp 16 11/19/18 13:03 BP 143/94 11/19/18 13:03 Pulse Ox 93 11/19/18 13:03 Pain Intensity (0-10): denies any pain General appearance: no acute distress Performance status: 3-limited selfcare - EENT Eyes: EOM intact ENT: clear oral mucosa Lymph node exam: negative cervical - Neck Neck: normal ROM - Respiratory Respiratory effort: Positive: normal Respiratory: bilateral: diminished - Cardiovascular Heart Sounds: Present: S1 & S2 Extremities: No edema - Gastrointestinal General gastrointestinal: Present: soft, non-tender Rectal Exam: deferred - Genitourinary Female genitourinary: Present: deferred - Integumentary Integumentary: warm - Musculoskeletal Musculoskeletal: generalized weakness - Neurologic Neurologic: moves all extremities - Labs Lab Results: Laboratory Results - last 24 hr 11/18/18 11/18/18 11/18/18 16:52 17:22 21:42 POC Glucose 156 H 128 H Vancomycin Trough 7.6 11/19/18 11/19/18 11/19/18 07:34 13:09 16:21 POC Glucose 132 H 121 H 150 H Vancomycin Trough Medications & Allergies - Medications Allergies/Adverse Reactions: Allergies hydrocodone Adverse Reaction (Verified 11/16/18 00:09) Anaphylaxis metformin Adverse Reaction (Verified 11/16/18 00:09) Anaphylaxis oxycodone [From OxyContin] Adverse Reaction (Verified 11/16/18 00:09) Angioedema Home Medications: Home Medications Medication Instructions Recorded Confirmed Last Taken Type ALPRAZolam [Xanax TAB] 0.5 mg PO DAILY 11/15/18 11/16/18 11/15/18 History Aspirin [Aspir-Low] 81 mg PO DAILY 11/15/18 11/16/18 11/15/18 History Clopidogrel Bisulfate [Clopidogrel] 75 mg PO DAILY 11/15/18 11/16/18 11/15/18 History Empagliflozin [Jardiance] 25 mg PO DAILY 11/15/18 11/15/18 11/14/18 History Escitalopram [Lexapro] 10 mg PO DAILY 11/15/18 11/16/18 11/15/18 History Losartan/Hydrochlorothiazide 1 tab PO DAILY 11/15/18 11/16/18 11/15/18 History [Losartan-Hctz 50-12.5 mg Tab] Sitagliptin Phosphate [Januvia] 1 tab PO DAILY 11/15/18 11/16/18 11/15/18 History Active Medications: Generic Name Dose Route Start Last Admin Trade Name Freq PRN Reason Stop Dose Admin Acetaminophen 650 mg 11/16/18 01:02 Tylenol PO Q4H PRN Fever >101 Alprazolam 0.5 mg 11/16/18 22:00 11/18/18 21:51 Xanax PO 0.5 mg QHS PETE Administration Alprazolam 0.5 mg 11/16/18 10:00 11/19/18 09:58 Xanax PO 0.5 mg DAILY PETE Administration Aspirin 81 mg 11/16/18 10:00 11/19/18 09:46 Halfprin Ec PO 81 mg DAILY PETE Administration Benzonatate 100 mg 11/16/18 14:00 11/19/18 14:45 Tessalon Perles PO 100 mg Q8HR PETE Administration Clopidogrel Bisulfate 75 mg 11/16/18 10:00 11/19/18 09:47 Plavix PO 75 mg DAILY PETE Administration Dextrose 50 ml 11/16/18 01:06 D50w (25gm) Syringe IV PRN PRN Hypoglycemia Escitalopram Oxalate 10 mg 11/16/18 10:00 11/19/18 09:47 Lexapro PO 10 mg DAILY PETE Administration Sodium Chloride 1,000 mls @ 125 mls/hr 11/16/18 02:00 11/19/18 14:46 Nacl 0.9% 1000 Ml IV 125 mls/hr DIRECT PETE Administration Piperacillin Sod/Tazobactam Sod 3.375 gm in 50 mls @ 100 mls/hr 11/16/18 06:00 11/19/18 14:41 Zosyn/Ns 3.375gm/50ml IV 100 mls/hr Q8HR PETE Administration Vancomycin HCl 1,500 mg/ 530 mls @ 333.333 mls/hr 11/16/18 18:00 11/19/18 06:08 Sodium Chloride IV 333.333 mls/hr Q12H PETE Administration Insulin Human Regular 0 units 11/16/18 07:30 11/19/18 14:20 Humulin R SUB-Q Not Given [facility] Protocol Insulin Human Regular 0 units 11/16/18 22:00 11/18/18 21:51 [facility]ulin R SUB[facility]Q [facility] Protocol Morphine Sulfate 2 mg 11/17/18 13:15 11/19/18 09:43 Morphine IV 2 mg Q6H PRN Administration Pain, Moderate (4-6) Ondansetron HCl 4 mg 11/16/18 01:04 11/19/18 09:45 Zofran IV 4 mg Q8H PRN Administration Nausea And Vomiting Potassium Chloride 40 meq 11/16/18 10:00 11/19/18 09:46 K-Dur PO 40 meq QDAY PETE Administration Zolpidem Tartrate 10 mg 11/19/18 13:21 Ambien PO QHS PRN Insomnia
[2018-11-20] MEDS: MORPHINE IV PRN ×4 (02:06→21:30)
[2018-11-20] MEDS: ZOSYN/NS 3.375GM/50ML 3.375 GM/50 ML BAG IV SCH ×3 (05:41→21:31)
[2018-11-20] MEDS: VANCOMYCIN 1,500 MG in NACL 0.9% 500 ML 500 ML IV SCH ×2 (05:47→18:11)
[2018-11-20 06:10] LABS: Basophils % (Auto) 0.5 % (0.0-1.8); Eosinophils # (Auto) 0.1 K/mm3 (0.0-0.4); Eosinophils % (Auto) 0.5 % (0.0-4.3); Hematocrit 40.1 % (30.3-42.9); Hemoglobin 13.2 gm/dl (10.1-14.3); Lymphocytes # (Auto) 1.1 K/mm3 (1.2-5.4); Lymphocytes % (Auto) 10.5 % (13.4-35.0); Mean Corpuscular HGB Conc 33 % (30-34); Mean Corpuscular Volume 88 fl (79-97); Monocytes # (Auto) 1.1 K/mm3 (0.0-0.8); Monocytes % (Auto) 10.6 % (0.0-7.3); Platelet Count 343 K/mm3 (140-440); Red Blood Count 4.56 M/mm3 (3.65-5.03); Red Cell Distribution Width 14.6 % (13.2-15.2)
[2018-11-20] MEDS: TESSALON PERLES PO SCH ×4 (06:10→21:29)
[2018-11-20 06:28] LABS: BUN/Creatinine Ratio 10; Blood Urea Nitrogen 5 mg/dL (7-17); Calcium 9.3 mg/dL (8.4-10.2); Hemolysis Index 10
--- NOTE | 2018-11-20 08:00 | Hem/Onc Progress Note ---
Assessment and Plan lung ca sq cell s/p 6 cycles of carbo - taxol - last aug 2018 due to disease progression - the plan was to change to keytruda pt was SOB I d/w dr flores office - pt did not get keytruda SOB sec to pericardial effusion fluid was drained - feeling better d/w 1. Squamous cell non-small cell lung cancer diagnosed 2018 status post 6 doses of carboplatin and Taxol. I was under the impression that keytruda was started and I gave trial of Steroid - this was stopped. 2. Mention of emphysema. 3. Mention of pericardial effusion. 4. History of hypertension. 5. History of cerebrovascular accident. 6. History of diabetes. 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 I will follow the patient during inpatient stay. 11/18 better after pericardial fluid removal once stable - pt will go and see her primary oncologist 11/19 wants to go home adv pt to ambulate 11/20/2018 SOB - likely rec pericardial fluid reaccumulation d/w hospitalist - reg ECHO d/w RN h/o CVA - Patient Problems (1) Lung cancer Current Visit: Yes Status: Acute Subjective Date of service: 11/20/18 Principal diagnosis: lung ca Interval history: SOB Objective - Constitutional Vitals: Last Vital Signs Temp 98.0 F 11/20/18 07:27 Pulse 118 H 11/20/18 07:27 Resp 20 11/20/18 07:27 BP 131/83 11/20/18 07:27 Pulse Ox 91 11/20/18 07:27 Pain Intensity (0-10): 10 General appearance: severe distress (SOB) - EENT Eyes: EOM intact ENT: clear oral mucosa Lymph node exam: negative cervical - Neck Neck: normal ROM - Respiratory Respiratory effort: Positive: normal Respiratory: bilateral: diminished - Cardiovascular Heart Sounds: Present: S1 & S2 Extremities: normal temperature - Gastrointestinal General gastrointestinal: Present: soft, non-tender Rectal Exam: deferred - Genitourinary Female genitourinary: Present: deferred - Integumentary Integumentary: warm - Musculoskeletal Musculoskeletal: generalized weakness - Labs Lab Results: Laboratory Results - last 24 hr 11/19/18 11/19/18 11/19/18 07:34 13:09 16:21 WBC RBC Hgb Hct MCV MCH MCHC RDW Plt Count Lymph % (Auto) [place] % (Auto) Eos % (Auto) Baso % (Auto) Lymph # [place] # Eos # Baso # Seg Neutrophils % Seg Neutrophils # Sodium Potassium Chloride Carbon Dioxide Anion Gap BUN Creatinine Estimated GFR BUN/Creatinine Ratio Glucose POC Glucose 132 H 121 H 150 H Calcium 11/19/18 11/20/18 11/20/18 21:54 05:49 05:49 WBC 10.1 RBC 4.56 Hgb 13.2 Hct 40.1 MCV 88 MCH 29 MCHC 33 RDW 14.6 Plt Count 343 Lymph % (Auto) 10.5 L [place] % (Auto) 10.6 H Eos % (Auto) 0.5 Baso % (Auto) 0.5 Lymph # 1.1 L [place] # 1.1 H Eos # 0.1 Baso # 0.0 Seg Neutrophils % 77.9 H Seg Neutrophils # 7.8 H Sodium 141 Potassium 3.5 L Chloride 103.6 Carbon Dioxide 23 Anion Gap 18 BUN 5 L Creatinine 0.5 L Estimated GFR > 60 BUN/Creatinine Ratio 10 Glucose 161 H POC Glucose 130 H Calcium 9.3 Medications & Allergies - Medications Allergies/Adverse Reactions: Allergies hydrocodone Adverse Reaction (Verified 11/16/18 00:09) Anaphylaxis metformin Adverse Reaction (Verified 11/16/18 00:09) Anaphylaxis oxycodone [From OxyContin] Adverse Reaction (Verified 11/16/18 00:09) Angioedema Home Medications: Home Medications Medication Instructions Recorded Confirmed Last Taken Type ALPRAZolam [Xanax TAB] 0.5 mg PO DAILY 11/15/18 11/16/18 11/15/18 History Aspirin [Aspir-Low] 81 mg PO DAILY 11/15/18 11/16/18 11/15/18 History Clopidogrel Bisulfate [Clopidogrel] 75 mg PO DAILY 11/15/18 11/16/18 11/15/18 History Empagliflozin [Jardiance] 25 mg PO DAILY 11/15/18 11/15/18 11/14/18 History Escitalopram [Lexapro] 10 mg PO DAILY 11/15/18 11/16/18 11/15/18 History Losartan/Hydrochlorothiazide 1 tab PO DAILY 11/15/18 11/16/18 11/15/18 History [Losartan-Hctz 50-12.5 mg Tab] Sitagliptin Phosphate [Auguvia] 1 tab PO DAILY 11/15/18 11/16/18 11/15/18 History Active Medications: Generic Name Dose Route Start Last Admin Trade Name Freq PRN Reason Stop Dose Admin Acetaminophen 650 mg 11/16/18 01:02 Tylenol PO Q4H PRN Fever >101 Alprazolam 0.5 mg 11/16/18 22:00 11/19/18 22:45 Xanax PO Not Given QHS PETE Alprazolam 0.5 mg 11/16/18 10:00 11/19/18 09:58 Xanax PO 0.5 mg DAILY PETE Administration Aspirin 81 mg 11/16/18 10:00 11/19/18 09:46 Halfprin Ec PO 81 mg DAILY PETE Administration Benzonatate 100 mg 11/16/18 14:00 11/20/18 06:10 Tessalon Perles PO 100 mg Q8HR PETE Administration Clopidogrel Bisulfate 75 mg 11/16/18 10:00 11/19/18 09:47 Plavix PO 75 mg DAILY PETE Administration Dextrose 50 ml 11/16/18 01:06 D50w (25gm) Syringe IV PRN PRN Hypoglycemia Escitalopram Oxalate 10 mg 11/16/18 10:00 11/19/18 09:47 Lexapro PO 10 mg DAILY PETE Administration Sodium Chloride 1,000 mls @ 125 mls/hr 11/16/18 02:00 11/19/18 14:46 Nacl 0.9% 1000 Ml IV 125 mls/hr DIRECT PETE Administration Piperacillin Sod/Tazobactam Sod 3.375 gm in 50 mls @ 100 mls/hr 11/16/18 06:00 11/20/18 05:41 Zosyn/Ns 3.375gm/50ml IV 100 mls/hr Q8HR PETE Administration Vancomycin HCl 1,500 mg/ 530 mls @ 333.333 mls/hr 11/16/18 18:00 11/20/18 05:47 Sodium Chloride IV 333.333 mls/hr Q12H PETE Administration Insulin Human Regular 0 units 11/16/18 07:30 11/19/18 18:31 Humulin R SUB-Q Not Given [facility] Protocol Insulin Human Regular 0 units 11/16/18 22:00 11/19/18 22:42 Humulin R SUB-Q Not Given QHS PETE Protocol Morphine Sulfate 2 mg 11/17/18 13:15 11/20/18 02:06 Morphine IV 2 mg Q6H PRN Administration Pain, Moderate (4-6) Ondansetron HCl 4 mg 11/16/18 01:04 11/19/18 09:45 Zofran IV 4 mg Q8H PRN Administration Nausea And Vomiting Potassium Chloride 40 meq 11/16/18 10:00 11/19/18 09:46 K-Dur PO 40 meq QDAY PETE Administration Zolpidem Tartrate 10 mg 11/19/18 13:21 Ambien PO QHS PRN Insomnia
[2018-11-20] MEDS: LEXAPRO PO SCH (10:20)
[2018-11-20] MEDS: HALFPRIN EC PO SCH (10:20)
[2018-11-20] MEDS: PLAVIX PO SCH (10:20)
[2018-11-20] MEDS: XANAX PO SCH (10:21)
[2018-11-20] MEDS: HumuLIN R SUB-Q SCH ×4 (10:55→21:31)
--- NOTE | 2018-11-20 11:48 | Progress Note ---
Assessment and Plan Pericardial effusion and tamponade s/p emergency pericardiocentesis 11/17 with 1150 ml of serous fluid drainage (complete resolution of effusion at the end of procedure) Repeat limited echo shows moderate pericardial fluid. No tamponade. EF 60- 65%. Metastatic lung cancer Type II DM History of CVA on aspirin and plavix We will repeat an limited echocardiogram for re-evaluation of pericardial effusion. Subjective Date of service: 11/20/18 Principal diagnosis: lung ca Interval history: Noted with labored breathing. Unable to complete sentences. Objective Vital Signs Temp Pulse Pulse Pulse Resp BP Pulse Ox 11/20/18 07:27 98.0 F 118 H 20 131/83 91 11/20/18 05:13 99.3 F 121 H 18 134/82 88 11/20/18 05:00 122 H 11/20/18 00:12 99.1 F 122 H 20 126/79 85 11/19/18 21:00 81 81 118 H 18 11/19/18 20:02 99.9 F H 118 H 18 126/79 84 11/19/18 17:10 98.8 F 116 H 16 133/87 91 11/19/18 13:03 99.2 F 113 H 16 143/94 93 11/19/18 13:00 111 H - Physical Examination General: Other (mild) HEENT: Positive: PERRL Cardiac: Positive: Tachycardia Abdomen: Positive: Soft Extremities: Absent: edema - Labs and Meds CBC 11/20/18 Range/Units 05:49 WBC 10.1 (4.5-11.0) K/mm3 RBC 4.56 (3.65-5.03) M/mm3 Hgb 13.2 (10.1-14.3) gm/dl Hct 40.1 (30.3-42.9) % Plt Count 343 (140-440) K/mm3 Lymph # 1.1 L (1.2-5.4) K/mm3 [place] # 1.1 H (0.0-0.8) K/mm3 Eos # 0.1 (0.0-0.4) K/mm3 Baso # 0.0 (0.0-0.1) K/mm3 Comprehensive Metabolic Panel 11/20/18 Range/Units 05:49 Sodium 141 (137-145) mmol/L Potassium 3.5 L (3.6-5.0) mmol/L Chloride 103.6 (98-107) mmol/L Carbon Dioxide 23 (22-30) mmol/L BUN 5 L (7-17) mg/dL Creatinine 0.5 L (0.7-1.2) mg/dL Glucose 161 H (65-100) mg/dL Calcium 9.3 (8.4-10.2) mg/dL
[2018-11-20] MEDS: K-DUR PO SCH (12:14)
--- NOTE | 2018-11-20 17:30 | Event Note ---
Date: 11/20/18 Please transfer patient to [facility] service of Dr. José Miguel Babb for surgical evaluation of recurrent pericardial effusion.
--- NOTE | 2018-11-20 17:54 | Discharge Summary ---
Providers - Providers Date of Admission: 11/16/18 00:09 Date of discharge: 11/20/18 Attending physician: MYRNA LAZAR 11/16/18 10:58 Consult to Physician [CONS] Routine Comment: Consulting Provider: RAHAT SCHWAB Physician Instructions: Reason For Exam: Stage IV lung ca/Chemotherapy 11/17/18 11:02 Consult to Physician [CONS] Routine Comment: Consulting Provider: CHANDRIKA FIGUEROA Physician Instructions: Reason For Exam: Pericardial effusion with tamponade Primary care physician: ZAKIYA LEMONS Hospitalization Reason for admission: worsening shortness of breath/pericardial effusion/pneumonia Condition: Stable Pertinent studies: Multiple Chest x-rays CT chest Echocardiogram x 3 Lower extremity venous Doppler Procedures: Pericardiocentesis; removal of 1150 mL pericardial fluid Hospital course: 63-year-old female patient with significant past medical history of stage IV squamous cell lung cancer diagnosed in widespread bilateral pulmonary metastases status post chemotherapy, follows with oncologist , was admitted through emergency room with worsening shortness of breath and community-acquired pneumonia. The patient's CT scan revealed pericardial effusion, subsequently obtained echocardiogram And cardiology consultation, patient had malignant pericardial effusion with tamponade not Emergent pericardiocentesis and removal of 1150 mL of fluid., Follow-up echocardiograms are consistent with recurrent pericardial effusions, Cardiology has recommended transfer to [facility] under the service of CT surgeon for further evaluation and management and possible pericardial window., At the time of discharge patient is critically ill with guarded prognosis Plan of care was reviewed with the patient her nurse and the charge nurse Diagnosis and management; --Large malignant pericardial effusion with tamponade; s/p emergency pericardiocentesis on 11/17/18 and removal of 1150ml of pericardial fluid.,Fluid cultures and AFB negative. --Recurrent malignant pericardial effusion on follow-up echocardiogram Global Chief Experience Officer , recom transfer to [facility], service of of Dr.John Babb.for further evaluation and management of recurrent pericardial effusion --Metastatic Lung cancer; status post chemotherapy Pt follows with private onc [facility] Oncologist Dr. Schwab following the patient --Possible right lung pneumonia; community-acquired Empiric antibiotics, cultures negative to date --Sepsis/lactic acidosis; secondary to pneumonia --Hypokalemia; replaced --Elevated D dimers; negative PE, lung mass noted Negative LE DVT --Type 2 diabetes mellitus; Accu-Chek sliding scale coverage and ADA diet long acting insulin as needed. --Obesity; BMI 35.7 ,Weight reduction when medically stable --DVT prophylaxis; SCDs, no pharmacologic anticoagulation pending procedure Patient will be transferred to [facility] under the care of Dr. José Miguel Babb As recommended by event host Disposition: [id number]/TX-70 ANOTHER TYPE HLTHCARE Time spent for discharge: 35 min Core Measure Documentation - Palliative Care Palliative Care/ Comfort Measures: Not Applicable - Core Measures Any of the following diagnoses?: none Exam - Constitutional Vitals: Temp Pulse Resp BP Pulse Ox 98.0 F 117 H 20 131/83 91 11/20/18 07:27 11/20/18 13:00 11/20/18 07:27 11/20/18 07:27 11/20/18 07:27 General appearance: Present: mild distress, well-nourished, obese - EENT Eyes: Present: PERRL, EOM intact - Neck Neck: Present: supple, normal ROM - Respiratory Respiratory effort: labored Respiratory: bilateral: diminished, rales, rhonchi, negative: wheezing - Cardiovascular Rhythm: regular Heart Sounds: Present: S1 & S2 (Muffled Heart sounds ) - Extremities Extremities: no ischemia Extremity abnormal: edema Peripheral Pulses: within normal limits - Abdominal General gastrointestinal: Present: soft, non-tender, non-distended, normal bowel sounds - Integumentary Integumentary: Present: clear, warm - Musculoskeletal Musculoskeletal: strength equal bilaterally, generalized weakness - Psychiatric Psychiatric: appropriate mood/affect, cooperative, other (anxious at times) - Neurologic Neurologic: CNII-XII intact, moves all extremities Plan Additional Instructions: Transfer patient to [facility] service of Dr. José Miguel Babb for surgical evaluation of recurrent pericardial effusion. Follow up with: ZAKIYA LEMONS MD [Primary Care Provider] - 3-5 Days
[2018-11-21] MEDS: XANAX PO SCH (00:06)
[2018-11-21 17:53] VITALS: BP 137/84
[2018-11-27 10:07] LABS: LDH,Body Fluid 865; Total Protein,Body Fluid 3.6 (15.0-45.0)
== END 2018-11-21 02:00 | disposition short-term general hospital (02) | DRG 871 ==
LOC: ED 19:21 → 4A 11-16 00:09
PROVIDERS: ADMIT Internal Medicine; ATTEND Internal Medicine
PROC: 0W9G30Z Drainage of Peritoneal Cavity with Drainage Device, Percutaneous Approach (ICD-10-PCS; principal; 2018-11-17)
DX: A41.9 Sepsis, unspecified organism (principal); J18.9 Pneumonia, unspecified organism; I31.3 Pericardial effusion (noninflammatory); E87.2 Acidosis; I31.4 Cardiac tamponade; J43.9 Emphysema, unspecified; E87.6 Hypokalemia; I10 Essential (primary) hypertension; E11.9 Type 2 diabetes mellitus without complications; E66.9 Obesity, unspecified; Z68.35 Body mass index [BMI] 35.0-35.9, adult; Z87.891 Personal history of nicotine dependence; Z88.8 Allergy status to other drugs, medicaments and biological substances; Z85.118 Personal history of other malignant neoplasm of bronchus and lung; Z86.73 Personal history of transient ischemic attack (TIA), and cerebral infarction without residual deficits
CPT/HCPCS: 33010; 36415; 71045; 71275; 80048; 80053; 80202; 81001; 82140; 82947; 82962; 83605; 83735; 83880; 84160; 84484; 85025; 85379; 87040; 87086; 87116; 88112; 88305; 88341; 88342; 89051; 93005; 93010; 93306; 93308; 93321; 93325; 93970; 96365; 96366; G0378; C8929; J1815; J1956; J2250; J2270; J2405; J2543; J2930; J3010; J3370; J7030; J7040; Q9957; Q9967